=== PATIENT | male | born 1965 | race Caucasian/White ===

== ENCOUNTER 2018-03-06 21:27 | Inpatient (IN) | payer OTHER ==
[2018-03-06] MEDS ORDERED: SODIUM CHLORIDE 0.9% 1,000 ML IV SCH (23:45)
[2018-03-06] MEDS ORDERED: VANCOMYCIN IV PER PHARMACY 1 EACH MISC MISCELLANE PRN (23:59)
[2018-03-07] MEDS ORDERED: VANCOMYCIN 1,250 MG in SODIUM CHLORIDE 0.9% 250 ML IVPB STA (00:03)
--- NOTE | 2018-03-07 00:04 | ED ---
General Adult HPI - General Chief complaint: Extremity Problem,Nontraumatic Stated complaint: Infected knee Time Seen by Provider: 03/06/18 22:22 Source: patient, RN notes reviewed Mode of arrival: ambulatory Limitations: no limitations - History of Present Illness Initial comments: Chief complaint and history of present illness this is a 52-year-old male with an infection to his right knee. The patient has a history of MRSA. More recently he was placed on Bactrim because of infection to his right knee. He reports getting worse over the past 2 days. - Related Data Home Medications Medication Instructions Recorded Confirmed Ibuprofen [Motrin] 800 mg PO DAILY 03/06/18 03/06/18 Sulfamethox-Tmp 800-160Mg [Bactrim 1 tab PO Q12HR 03/06/18 03/06/18 DS 800-160 mg] Allergies Allergy/AdvReac Type Severity Reaction Status Date / Time meperidine [From Demerol] Allergy Itching Verified 03/06/18 21:53 Review of Systems ROS Statement: Those systems with pertinent positive or pertinent negative responses have been documented in the HPI. Review of systems no other complaints other than pain. The patient does report that he is homeless and he uses cocaine and methamphetamine to control pain. The patient does have a past history of MRSA to his left leg 2 months ago. Spent the [facility] in [facility]. More recently he said he knelt down irritated his right knee. Subsequently developed an infection. Currently being treated as it was MRSA. He's been on Bactrim for 2 days and the infection seems to be getting worse. Past medical problems significant for chronic abuse of cocaine and methamphetamine. The patient's surgeries include elbow and both knees. Family history no cancers. The patient has ALLERGIES to Demerol. Denies smoking denies drinking. ROS Other: All systems not noted in ROS Statement are negative. Past Medical History Past Medical History: No Reported History History of Any Multi-Drug Resistant Organisms: MRSA Date of last positivie culture/infection: 2017 MDRO Source:: left leg Past Surgical History: Back Surgery, Orthopedic Surgery Past Psychological History: Bipolar, Depression Smoking Status: Former smoker Past Alcohol Use History: None Reported Past Drug Use History: Cocaine, Methamphetamine General Exam - General Exam Comments Initial Comments: General: The patient is awake and alert, vital painful swollen infected right knee. Vital signs temperature 98.1 pulse 107 respiratory rate 18 pulse ox 90% room air blood pressure 109/71 Eye: Pupils are equal, round and reactive to light, extra-ocular movements are intact ; there is normal conjunctiva bilaterally. No signs of icterus. Ears, nose, mouth and throat: There are moist mucous membranes Neck: The neck is supple, there is no tenderness . Cardiovascular: There is a regular rate and rhythm. No murmur, rub or gallop is appreciated. Respiratory: Lungs are clear to auscultation, respirations are non-labored, breath sounds are equal. No wheezes, stridor, rales, or rhonchi. Gastrointestinal: Soft, non-distended, non-tender abdomen without masses or organomegaly noted. There is no rebound or guarding present. No CVA tenderness. Bowel sounds are unremarkable. Back: Denies back pain today. Musculoskeletal: Infected skin over right knee. Cellulitis spreading down to the lateral aspect of the right leg. Vascular status of the foot intact. Neurological: No focal or lateralizing findings Skin: Skin is warm and dry and no rashes or lesions are noted. Psychiatric: Cooperative, Limitations: no limitations Course Vital Signs 03/06/18 03/06/18 21:48 23:41 Temperature 98.1 F 98.3 F Pulse Rate 107 H 61 Respiratory 18 18 Rate Blood Pressure 109/71 125/76 O2 Sat by Pulse 98 98 Oximetry Medical Decision Making - Medical Decision Making Medical decision making; this is a 52-year-old male reports he is homeless. He' s been on Bactrim for a worsening infection to his right knee area for 2 days. Cellulitis and developing now down towards his lateral right calf. He does a past history of MRSA. The patient will be admitted to the hospitalist. Been started on vancomycin here in the emergency room. Cultures been taken. Disposition Clinical Impression: Cellulitis of right lower extremity without foot Disposition: ADMITTED IP TO THIS HOSP Condition: Serious Is patient prescribed a controlled substance at d/c from ED?: No Referrals: None,Stated [Primary Care Provider] - 1-2 days
[2018-03-07 00:22] LABS: Basophils % (A) 0 %; Eosinophils # (A) 0.1 k/uL (0-0.7); Eosinophils % (A) 1 %; HCT 39.6 % (39.0-53.0); HGB 13.1 gm/dL (13.0-17.5); Lymphocytes % (A) 12 %; MCH 29.4 pg (25.0-35.0); MCHC 33.1 g/dL (31.0-37.0); MCV 88.9 fL (80.0-100.0); Mean Platelet Volume 6.6; Monocytes # (A) 0.5 k/uL (0-1.0); Monocytes % (A) 7 %; Neutrophils # (A) 6.2 k/uL (1.3-7.7); Neutrophils % (A) 78 %; Platelet Count 227 k/uL (150-450); RBC 4.46 m/uL (4.30-5.90); RDW 12.5 % (11.5-15.5)
[2018-03-07 00:31] LABS: Albumin 3.7 g/dL (3.5-5.0); Anion Gap 10 mmol/L; Calcium 9.3 mg/dL (8.4-10.2); Carbon Dioxide 24 mmol/L (22-30); Chloride 104 mmol/L (98-107); Glucose 89 mg/dL (74-99); Sodium 138 mmol/L (137-145); Total Bilirubin 0.6 mg/dL (0.2-1.3); Total Protein 6.5 g/dL (6.3-8.2)
[2018-03-07 00:47] LABS: AST 42 U/L (17-59); Blood Urea Nitrogen 21 mg/dL (9-20); Potassium 4.5 mmol/L (3.5-5.1)
[2018-03-07 00:48] LABS: ALT 34 U/L (21-72); Alkaline Phosphatase 42 U/L (38-126)
[2018-03-07] MEDS ORDERED: NALOXONE 0.4 MG/ML 1 ML VIAL IV PRN (01:08)
[2018-03-07] MEDS: IBUPROFEN 400 MG TAB PO PRN ×2 (02:10→08:19)
[2018-03-07 02:39] VITALS: BMI 23.3
[2018-03-07] MEDS: SODIUM CHLORIDE 0.9% 1,000 ML IV SCH ×2 (03:05→14:52)
[2018-03-07] MEDS: VANCOMYCIN 1,250 MG in SODIUM CHLORIDE 0.9% 250 ML IVPB SCH ×2 (08:04→20:02)
[2018-03-07] MEDS: HYDROcodone/APAP 7.5-325MG 1 EACH TAB PO PRN ×2 (10:41→18:17)
[2018-03-07] MEDS ORDERED: LORazepam 1 MG TAB PO PRN (11:13)
--- NOTE | 2018-03-07 16:17 | P.CNOR ---
History of Present Illness - [facility] Consult date: 03/07/18 Consult reason: other History of present illness: Patient is a 52-year-old male who presented to [facility] on late night of 03/06/2018 with regards to infection to his right knee revision. Patient states that he noticed the redness and swelling beginning earlier in the week, and is progressively gotten worse over the last few days. According to the emergency room note, patient has been on oral Bactrim. Patient noticed some of the redness around the knee started trending down the lateral side of the right leg, this prompted him to come to the emergency room. Patient does have a history of MRSA, he states that was on his left leg last year. It was a wound that is over the anterior lower leg. There is no surgical intervention was done. Patient cannot remember kneeling down on anything involving the right knee that may have caused this. Patient has had a previous right knee arthroscopy on his right knee, this was done many years ago. Patient states that he is homeless at this time, and he does use illicit drugs. He denies any recent trauma involving the right lower extremity. Review of Systems Constitutional: Reports as per [facility] Past Medical History Past Medical History: No Reported History History of Any Multi-Drug Resistant Organisms: MRSA Year Discovered:: 2018 MDRO Source:: left leg Past Surgical History: Back Surgery, Orthopedic Surgery Additional Past Surgical History / Comment(s): bilateral elbow, 2 R knee surgeries Past Psychological History: Bipolar, Depression Smoking Status: Never smoker Past Alcohol Use History: None Reported Past Drug Use History: Cocaine, Methamphetamine - Past Family History Father Additional Family Medical History / Comment(s): from staph infection Mother Additional Family Medical History / Comment(s): Alzheimers Medications and Allergies Home Medications Medication Instructions Recorded Confirmed Type No Known Home Medications 03/07/18 03/07/18 History Allergies Allergy/AdvReac Type Severity Reaction Status Date / Time meperidine [From Demerol] Allergy Itching Verified 03/07/18 12:20 Physical Examination Right lower extremity: Obvious area of erythema and skin breakdown noted over the lateral aspect of the patella and lateral knee. There are 2 small areas more on the anterior aspect of the wound or purulent drainage is noted. Mild fluctuation of the prepatellar bursa is appreciated. No effusion is present on the knee Patient can fully extend the knee, he can flex past 90 with minimal difficulty. There is some erythema that traces down the lateral aspect of the right lower leg, this is outlined in marker 6, no tenderness with palpation Plantar flexion, dorsiflexion, EHL, FHL are intact His dorsal pedis pulses 2+ Results - Labs Labs: Abnormal Lab Results - Last 24 Hours (Table) 03/06/18 03/06/18 03/06/18 Range/Units 22:52 22:52 22:52 ESR 18 H (0-15) mm/hr BUN 21 H (9-20) mg/dL C-Reactive Protein 49.4 H (<10.0) mg/L Microbiology - Last 24 Hours (Table) 03/06/18 22:57 Wound Culture - Preliminary Knee - Right H & H 03/06/18 Range/Units 22:52 Hgb 13.1 (13.0-17.5) gm/dL Hct 39.6 (39.0-53.0) % Result Diagrams: 03/06/18 22:52 03/06/18 22:52 Assessment and Plan Plan: Assessment: Right knee/leg cellulitis Right knee abscess History of MRSA Plan: I was able to discuss the case, including physical exam findings with Dr. Quezada. We are awaiting Gram stain results from the wound was taking in the emergency room. He does have an elevated CRP and sed rate at this time. He remains on IV antibiotics at this time Await infectious disease recommendations Patient will likely need surgical intervention, more specifically an incision and drainage procedure. Patient did have breakfast and lunch today, so surgery will be held. GI and DVT prophylaxis per medical recommendations Internal medicine's recommendations Patient will be Nothing by mouth the night before surgery, date of surgery will be determined shortly Further recommendations to follow Time with Patient: Less than 30
[2018-03-07 19:08] LABS: Appearance,Urine Clear (Clear); Bilirubin,Urine Negative (Negative); Blood,Urine Negative (Negative); Color,Urine Colorless; Glucose,Urine (UA) Negative (Negative); Ketones,Urine Negative (Negative); Leukocyte Esterase,Urine Negative (Negative); Nitrite,Urine Negative (Negative); PH, Urine 6.5 (5.0-8.0); Protein,Urine Negative (Negative); Specific Gravity,Urine 1.006 (1.001-1.035); Urobilinogen,Urine <2.0 mg/dL (<2.0)
[2018-03-07] MEDS: KETOROLAC 30 MG/ML 1 ML VIAL IVP PRN (19:19)
[2018-03-07 19:29] LABS: Amphetamine Screen,Urine Detected (NotDetected); Barbiturate Screen,Urine Not Detected (NotDetected); Benzodiazepines Screen,Urine Not Detected (NotDetected); Cocaine Screen,Urine Detected (NotDetected); Methadone Screen, Urine Not Detected (NotDetected); Opiate Screen,Urine Detected (NotDetected); Oxycodone Screen, Urine Not Detected (NotDetected); Phencyclidine Screen,Urine Not Detected (NotDetected); Tricyclic Antidepressant,Urine Not Detected (NotDetected); Urn Cannabinoid Scrn Not Detected (NotDetected)
--- NOTE | 2018-03-07 19:30 | HP ---
HISTORY AND PHYSICAL CHIEF COMPLAINT: Pain and swelling of the right leg. HISTORY OF PRESENT ILLNESS: This 52-year-old gentleman with a past history of DJD, history of bipolar depression being followed by no primary physician in the outpatient setting, apparently was recently treated in [facility]. Records are not available. Currently the patient is complaining of the pain and swelling of the right knee. The patient also had a history of substance abuse also. The patient admitted to the hospital for further evaluation and treatment. Patient also has history of Methicillin-resistant Staphylococcus aureus. The patient is not responding to Bactrim outpatient. There is no history of fever, rigors or chills at this time. PAST MEDICAL HISTORY: History of MRSA, history of back surgery, DJD, bipolar depression. MEDICATIONS: Prior to admission included none. ALLERGIES: DEMEROL. FAMILY HISTORY: History of staph infection in the family. SOCIAL HISTORY: History of polysubstance abuse, history of cocaine. No history of smoking. REVIEW OF SYSTEMS: ENT: No diminished vision. No diminished hearing. No angina or palpitations. RESPIRATORY SYSTEM: As mentioned. GI: No nausea or vomiting. : No dysuria. NERVOUS SYSTEM: No numbness or weakness. ALLERGY/IMMUNOLOGY: As mentioned earlier. MUSCULOSKELETAL: As mentioned earlier. HEMATOLOGY/ONCOLOGY: No history of anemia. ENDOCRINE: No history of diabetes or hypothyroidism. CONSTITUTIONAL: As mentioned earlier. Dermatology: Negative. Rheumatology: Negative. Psychiatry: As mentioned earlier. PHYSICAL EXAMINATION: GENERAL: The patient is alert and oriented times three. VITAL SIGNS: Pulse 75, pressure 112/67, respiration 18, temperature 97.4, pulse ox 97 percent on room air. HEENT: Conjunctivae normal. Oral mucosa moist. NECK is no jugular venous distention. No carotid bruit. No lymph node enlargement. Cardiovascular system: S1, S2 muffled. RESPIRATORY: Breath sounds diminished in the bases. Scattered rhonchi. No crackles. ABDOMEN: Soft, nontender. No mass palpable. Legs no edema. No swelling. Otherwise significant erythema and cellulitis of the right knee and cellulitis of the legs also present. Nervous system: No focal deficits. LABS: CBC within normal limits. ASSESSMENT: 1. Right leg and knee cellulitis with failure of outpatient treatment, possibly MRSA. 2. History of MRSA. 3. History of previous cellulitis. 4. History of back surgery. Degenerative joint disease. 5. Bipolar depression. 6. History of cocaine, methamphetamine. RECOMMENDATIONS AND DISCUSSION: In this 52-year-old gentleman who presented with multiple complex medical issues, we will monitor the patient closely. Continue the current medications, management and symptomatic treatment. I would recommend switch over to vancomycin. Symptomatic treatment. Otherwise I would recommend repeat labs. Cultures. DVT prophylaxis. Prognosis guarded because of multiple complex medical issues and further recommendations to follow. MMVENANCIOL / IJN: [id number] /
[2018-03-07] MEDS: HEPARIN SODIUM,PORCINE 5,000 UNIT/ML 1 ML VIAL SQ SCH (20:03)
[2018-03-07] MEDS ORDERED: TEMAZEPAM 15 MG CAP PO PRN (21:00)
[2018-03-08] MEDS: SODIUM CHLORIDE 0.9% 1,000 ML IV SCH ×2 (04:03→16:52)
--- NOTE | 2018-03-08 06:40 | CONS ---
CONSULTATION DATE OF SERVICE: 03/07/2018 REASON FOR CONSULTATION: Right knee wound and cellulitis. HISTORY OF PRESENT ILLNESS: The patient is a 52-year-old male who apparently did have a fall which led to laceration to the right knee area and open wound. Subsequently the patient developed significant pain and swelling to the knee area. Pain described as throbbing almost 10 out of 10 when severe and worse with walking. The patient also some superficial wound to the area. He has been treated with oral Bactrim without any improvement with worsening pain. He presented to the [facility]. On admission, the patient has been afebrile. His white count has been normal. Sed rate was at 18. UA was negative. Urine drug screen was positive for multiple medications. The patient did have right knee cultures obtained which are currently pending. The patient has been started on vancomycin. Infectious Disease was consulted for further recommendation regarding antibiotic therapy. The patient has been evaluated by Orthopedics with possible surgery for patient tomorrow. REVIEW OF SYSTEMS: CONSTITUTIONAL: Positive for weakness. Denies any high-grade fever. EYES: No complaint. ENT: No complaint. RESPIRATORY: No complaint. CARDIOVASCULAR: No complaint. GENITOURINARY: No complaint. GASTROINTESTINAL: No complaint. MUSCULOSKELETAL: As per HPI. INTEGUMENTARY: As per HPI. PSYCHOLOGICAL: No complaint. ENDOCRINE: No complaint. NEUROLOGIC: No complaint. PAST MEDICAL HISTORY: Previous history of MRSA left leg infection, bipolar depression. PAST SURGICAL HISTORY: Back surgery. SOCIAL HISTORY: Positive history of smoking. No drinking, but admitted to cocaine and methamphetamine use. ALLERGIES: Allergies to MEPERIDINE. MEDICATIONS: Medications include the patient is currently on [place], heparin, Motrin, Toradol, Ativan, vancomycin pharmacy to dose, Narcan, Restoril and vancomycin. PHYSICAL EXAMINATION: On examination, blood pressure 109/59 with a pulse of 70 temperature 97.6. He is 96% on room air. General description is a middle-aged male lying in bed in no distress. No tachypnea or accessory muscle of respiration use. HEENT examination shows no pallor. No scleral icterus. Oral mucous membrane is dry. No pharyngeal erythema or thrush. NECK: Trachea central. No thyromegaly. LUNGS: Unlabored breathing, clear to auscultation anteriorly. No wheeze or crackle. HEART: S1, S2. Regular rate and rhythm. ABDOMEN: Soft, no tenderness. No guarding or rigidity. EXTREMITIES: No edema of the feet. Examination the right knee did have superficial laceration with surrounding redness, slight swelling. No foul smelling drainage. NEUROLOGICALLY: The patient is awake, alert, oriented x3. Mood and affect is normal. LABS: Hemoglobin 13.1, white count 8.0. Sed rate is 18. BUN of 21, creatinine 0.90. Electrolytes have been normal. Liver enzymes are normal. Urine is negative. Urine drug screen was positive for opiates, amphetamines, cocaine. Knee culture is currently pending. Blood cultures currently pending. DIAGNOSTIC IMPRESSION AND PLAN: Patient admitted to the hospital with right knee cellulitis and concern for possible prepatellar bursitis and likely from a gram-positive skin tamie failing outpatient oral Bactrim therapy with concern for possible methicillin-resistant Staphylococcus aureus infection. PLAN: 1. Vancomycin pharmacy to dose target of 15. 2. Patient will benefit from I and D of this area to determine the extent of the disease and to see if the joint is involved or not. 3. We will follow on his clinical condition as well as cultures to further adjust medication if needed. Thank you for this consultation. Will follow this patient along with you. MMODL / IJN: [id number] /
[2018-03-08 07:37] LABS: Basophils % (A) 0 %; Eosinophils # (A) 0.2 k/uL (0-0.7); Eosinophils % (A) 5 %; HCT 35.8 % (39.0-53.0); HGB 12.1 gm/dL (13.0-17.5); Lymphocytes % (A) 26 %; MCH 30.3 pg (25.0-35.0); MCV 89.3 fL (80.0-100.0); Mean Platelet Volume 6.4; Monocytes # (A) 0.2 k/uL (0-1.0); Monocytes % (A) 6 %; Neutrophils # (A) 2.4 k/uL (1.3-7.7); Neutrophils % (A) 60 %; Platelet Count 185 k/uL (150-450); RDW 12.4 % (11.5-15.5); WBC 3.9 k/uL (3.8-10.6)
[2018-03-08 07:51] LABS: Anion Gap 6 mmol/L; Blood Urea Nitrogen 11 mg/dL (9-20); Calcium 8.8 mg/dL (8.4-10.2); Carbon Dioxide 25 mmol/L (22-30); Chloride 105 mmol/L (98-107); Glucose 82 mg/dL (74-99); Potassium 4.3 mmol/L (3.5-5.1); Sodium 136 mmol/L (137-145)
[2018-03-08] MEDS ORDERED: VANCOMYCIN TROUGH DUE 1 EACH MISC MISCELLANE ONE (08:00)
[2018-03-08] MEDS: HEPARIN SODIUM,PORCINE 5,000 UNIT/ML 1 ML VIAL SQ SCH ×2 (08:05→20:34)
[2018-03-08] MEDS: VANCOMYCIN 1,250 MG in SODIUM CHLORIDE 0.9% 250 ML IVPB SCH ×3 (08:06→23:54)
[2018-03-08] MEDS: KETOROLAC 30 MG/ML 1 ML VIAL IVP PRN ×2 (12:02→19:46)
[2018-03-08] MEDS ORDERED: LIDOCAINE 1% 20 ML VIAL (10MG/ML) FOR IV START INTRADERMA PRN (16:34)
[2018-03-08] MEDS ORDERED: fentaNYL (PF) 50 MCG/ML 2 ML AMP IV PRN (16:34)
[2018-03-08] MEDS ORDERED: DEXAMETHASONE SOD PHOSPHATE 10 MG/ML 1 ML VIAL IV ONE (16:34)
[2018-03-08] MEDS ORDERED: ONDANSETRON 4 MG/2 ML VIAL IVP ONE (16:34)
[2018-03-08] MEDS ORDERED: MIDAZOLAM 2 MG/2 ML VIAL IV PRN (16:34)
[2018-03-08] MEDS ORDERED: LACTATED RINGERS 1,000 ML IV SCH (16:45)
[2018-03-08] MEDS ORDERED: LACTATED RINGERS 1,000 ML IV ONE (17:07)
[2018-03-08] MEDS ORDERED: LIDOCAINE 1% INJ 10MG/ML (20 ML MDV) ONE (17:34)
[2018-03-08] MEDS ORDERED: MIDAZOLAM 2 MG/2 ML VIAL ONE (17:34)
[2018-03-08] MEDS ORDERED: PROPOFOL 10 MG/ML 20 ML VIAL IV ONE (17:34)
[2018-03-08] MEDS ORDERED: fentaNYL (PF) 50 MCG/ML 2 ML AMP ONE (17:34)
--- NOTE | 2018-03-08 18:08 | P.OP ---
Date of Procedure: 03/08/18 Preoperative Diagnosis: Right lateral knee abscess/cellulitis Postoperative Diagnosis: Same Procedure(s) Performed: Incision and drainage with irrigation and debridement right lateral knee abscess Anesthesia: REBEKA Surgeon: Sy Quezada Estimated Blood Loss (ml): 4 Pathology: other (Deep cultures) Condition: stable Disposition: PACU Indications for Procedure: The patient's a 52-year-old male who presents with progressive right knee pain and swelling, drainage, and erythema. Upon evaluation he was noted of evidence of a lateral abscess. This was not felt to involve the joint. A discussion of the risks and benefits of operative intervention was made with patient. Specific risks of the procedure to include persistence of infection and need for subsequent procedures was discussed. Informed consent was obtained. Operative Findings: As below Description of Procedure: The patient was brought to the operating room, and after induction of general anesthesia the right lower extremity was prepped and draped in normal fashion. The tourniquet is inflated to 270 mmHg. A 4 cm incision was then made on the lateral aspect of the right knee centered over the palpable abscess. The skin and subcutaneous tissues were divided sharply. Moderate purulent material was then expressed. Deep cultures were obtained. This was taken down to level the fascia. The necrotic tissue was sharply debrided with a scalpel to include skin and subcutaneous tissues. Skin edges were also debrided sharply with a scalpel. The wound was then copiously irrigated with pulsatile lavage. The joint did not appear to be involved. A Mark drain was placed in the deep layer. The skin was reprepped with simple 3-0 nylon suture. A sterile dressing was applied. The tourniquet was deflated less than 20 minutes total tourniquet time. The patient was awoken from general anesthesia and transferred to recovery room in good condition. Blood loss was estimated at 4 mL. No complications were incurred. Sponge and needle counts were correct at the end of the case.
[2018-03-08] MEDS: traMADol 50 MG TAB PO PRN (20:33)
[2018-03-09] MEDS: SODIUM CHLORIDE 0.9% 1,000 ML IV SCH ×2 (00:03→13:35)
[2018-03-09] MEDS: VANCOMYCIN 1,250 MG in SODIUM CHLORIDE 0.9% 250 ML IVPB SCH ×2 (07:38→15:31)
[2018-03-09] MEDS: HEPARIN SODIUM,PORCINE 5,000 UNIT/ML 1 ML VIAL SQ SCH ×2 (07:39→20:57)
[2018-03-09] MEDS: traMADol 50 MG TAB PO PRN (07:39)
[2018-03-09 07:56] LABS: Basophils % (A) 0 %; Eosinophils % (A) 1 %; HCT 40.8 % (39.0-53.0); HGB 13.2 gm/dL (13.0-17.5); Lymphocytes # (A) 0.8 k/uL (1.0-4.8); Lymphocytes % (A) 11 %; MCH 29.5 pg (25.0-35.0); MCHC 32.3 g/dL (31.0-37.0); MCV 91.4 fL (80.0-100.0); Mean Platelet Volume 6.1; Monocytes # (A) 0.3 k/uL (0-1.0); Monocytes % (A) 3 %; Neutrophils # (A) 6.6 k/uL (1.3-7.7); Neutrophils % (A) 84 %; Platelet Count 224 k/uL (150-450); RBC 4.46 m/uL (4.30-5.90); RDW 12.4 % (11.5-15.5); WBC 7.8 k/uL (3.8-10.6)
--- NOTE | 2018-03-09 07:56 | PN ---
PROGRESS NOTE DATE OF SERVICE: 03/08/2018. REASON FOR FOLLOWUP: Right knee abscess and cellulitis. INTERVAL HISTORY: The patient was taken to the OR and the patient is status post I and D with irrigation and debridement of the right lateral knee abscess with extension of the abscess down to the fascia. The knee joint was not involved. The patient had tolerated the procedure. The patient denies having any chest pain, shortness of breath or cough. No abdominal pain or any diarrhea. PHYSICAL EXAMINATION: On examination, blood pressure is 93/53 with a pulse of 65, temperature 97. He is 96% on room air. General description is a middle-aged male lying in bed in no distress. RESPIRATORY SYSTEM: Unlabored breathing, clear to auscultation anteriorly. HEART: S1, S2. Regular rate and rhythm. ABDOMEN: Soft, no tenderness. LABS: Hemoglobin is 12.1, white count 3.9 with a BUN of 11, creatinine 0.791. Knee culture presumptive MRSA. Blood culture so far negative. DIAGNOSTIC IMPRESSION AND PLAN: Patient with right lateral knee abscess status post drainage without involvement of the joints with culture with presumptive methicillin-resistant Staphylococcus aureus. The patient is on vancomycin pharmacy to dose target of 15 that will be continued while watching his kidney function closely. Continue supportive care. MMODL / IJN: [id number] /
--- NOTE | 2018-03-09 08:08 | PN ---
PROGRESS NOTE DATE OF SERVICE: 03/08/2018 This 52-year-old gentleman admitted with pain and swelling of the right knee has possible right leg cellulitis. Dr. Quezada performed incision and drainage and irrigation and debridement of the right knee abscess. The patient is being closely monitored. No chest pain. No palpitations. No fever. Patient on IV antibiotics. PHYSICAL EXAMINATION: On exam, alert and oriented x3. Pulse is 64, blood pressure 101/58, respiration 16, temperature 97 degrees, pulse ox 97% on room air. HEENT: Conjunctivae are normal. NECK: No jugular venous distention. CARDIOVASCULAR: S1 and S2 muffled. RESPIRATORY: Breath sounds diminished at the bases. No rhonchi, no crackles. ABDOMEN: Soft. LEGS: Status post right knee abscess drainage. NERVOUS SYSTEM: No focal deficits. LABS: WBC 3.9, hemoglobin 12.1. ASSESSMENT: 1. Right knee abscess with cellulitis status post incision, drainage and irrigation. 2. History of Methicillin-resistant Staphylococcus aureus. 3. History of previous cellulitis. 4. History of back surgery. 5. Degenerative joint disease. 6. History of bipolar, depression. 7. History of cocaine, methamphetamine. RECOMMENDATIONS AND DISCUSSION: Recommend to continue current medication, continue symptomatic treatment. Continue with broad-spectrum IV antibiotics. Follow the cultures. Closely follow with Infectious Disease and as well as Orthopedic Surgery. Further recommendations to follow. MMODL / IJN: [id number] /
[2018-03-09 08:12] LABS: Anion Gap 8 mmol/L; Blood Urea Nitrogen 15 mg/dL (9-20); Calcium 8.9 mg/dL (8.4-10.2); Carbon Dioxide 23 mmol/L (22-30); Chloride 106 mmol/L (98-107); Glucose 89 mg/dL (74-99); Potassium 4.3 mmol/L (3.5-5.1); Sodium 137 mmol/L (137-145)
--- NOTE | 2018-03-09 10:30 | P.PN ---
Subjective Progress Note Date: 03/09/18 Principal diagnosis: Status post I&D right leg abscess Patient seen today resting in his hospital bed, he appears comfortable. Notes minimal discomfort in the right knee/leg. He notes improvement since surgery yesterday. Denies any fevers or chills. Objective - Vital Signs Vital signs: Vital Signs Temp 97.8 F 03/09/18 07:52 Pulse 65 03/09/18 07:52 Resp 16 03/09/18 07:52 BP 110/56 03/09/18 07:52 Pulse Ox 97 03/09/18 07:52 Intake & Output 03/08/18 03/09/18 03/09/18 18:59 06:59 18:59 Intake Total 450 1800 Output Total 4 Balance 446 1800 Intake: IV 450 Intake, IV Titration 1210 Amount Sodium Chloride 0.9% 1, 960 000 ml @ 80 mls/hr IV . [id number] [facility] Rx#:[id number] Vancomycin 1,250 mg In 250 Sodium Chloride 0.9% 250 ml @ 125 mls/hr IVPB Q8HR [facility] Rx#:[id number] Oral 590 Output: Estimated Blood Loss 4 Other: Voiding Method Toilet Toilet # Voids 3 2 - Exam Right lower extremity: Postoperative bandages in good position and condition, along with Jim bandage Calf is soft, no tenderness with palpation Distal neurovascular exam is intact - Labs CBC & Chem 7: 03/09/18 07:34 03/09/18 07:34 Labs: Abnormal Lab Results - Last 24 Hours (Table) 03/09/18 Range/Units 07:34 Lymphocytes # 0.8 L (1.0-4.8) k/uL Microbiology - Last 24 Hours (Table) 03/06/18 22:57 Gram Stain - Final Knee - Right Wound Culture - Final Methicillin resist S. aureus 03/08/18 17:45 Gram Stain - Preliminary Knee - Right Wound Culture - Preliminary 03/08/18 17:45 Gram Stain - Preliminary Knee - Right Wound Culture - Preliminary 03/06/18 22:52 Blood Culture - Preliminary Blood No Growth after 48 hours 03/08/18 17:45 Anaerobic Culture - Preliminary Knee - Right 03/08/18 17:45 Anaerobic Culture - Preliminary Knee - Right Assessment and Plan Plan: Assessment: Postoperative day #1 status post I&D right leg abscess Plan: Overweight culture and sensitivities from surgery yesterday. Initial Gram stain and cultures from wound reveal MRSA. Infectious disease recommendations with regards to outpatient antibiotics GI and DVT prophylaxis per medical recommendations Pain control, continue use of oral medication We'll leave initial postop bandage on 1 additional day, we will remove [place] drain and change bandage tomorrow morning Further recommendations to follow Time with Patient: Less than 30
[2018-03-09] MEDS: KETOROLAC 30 MG/ML 1 ML VIAL IVP PRN ×2 (13:33→20:57)
--- NOTE | 2018-03-09 18:20 | PN ---
PROGRESS NOTE DATE OF SERVICE: 03/09/2018 This 52-year-old gentleman admitted with right knee abscess, incision and drainage. MRSA was grown. The patient had a history of MRSA. MRSA grown from the culture. No chest pain. No palpitations. No fever. EXAM: Alert and oriented x3. Pulse 65, blood pressure 110/65, respirations 16, temperature 97.8, pulse ox 97% on room air. HEENT: Conjunctivae normal. NECK: No jugular venous distention. CARDIOVASCULAR: S1, S2 muffled. RESPIRATORY: Breath sounds diminished in the bases. A few scattered rhonchi. No crackles. ABDOMEN: Soft, nontender. LEGS: Right knee cellulitis. NERVOUS SYSTEM: Nonfocal. LABS: CBC, BMP within normal limits. ASSESSMENT: 1. Right knee abscess cellulitis, status post incision and drainage, irrigation with methicillin-resistant Staphylococcus aureus. 2. History of methicillin-resistant Staphylococcus aureus previously. 3. History of previous cellulitis. 4. History of back surgery. 5. History of degenerative joint disease. 6. History of bipolar depression. 7. History of cocaine, methamphetamine. RECOMMENDATIONS AND DISCUSSION: Consequent to continue current medical management and symptomatic treatment with IV antibiotics. Closely follow with Orthopedic Surgery. Guarded prognosis. Further recommendations to follow. MMODL / IJN: [id number] /
--- NOTE | 2018-03-10 00:02 | PN ---
PROGRESS NOTE DATE OF SERVICE: 03/09/2018. REASON FOR FOLLOWUP: Right lateral knee MRSA abscess. INTERVAL HISTORY: The patient is currently afebrile. He has been breathing comfortably. Pain to the right lateral knee is currently controlled with pain medication. Denies having any chest pain. No shortness of breath or cough. No abdominal pain or any diarrhea. EXAMINATION: Blood pressure is 110/56 with a pulse of 65, temperature 97.8. He is 97% on room air. General description is middle-aged male lying in bed in no distress. RESPIRATORY SYSTEM: Unlabored breathing. Clear to auscultation anteriorly. HEART: S1, S2. Regular rate and rhythm. ABDOMEN: Soft. No tenderness. Right lateral knee is currently dressed with no obvious drainage on the dressing. LABS: Hemoglobin 13.2, white count 7.8 with a BUN of 15, creatinine 0.78. DIAGNOSTIC IMPRESSION AND PLAN: Patient with methicillin-resistant Staphylococcus aureus right knee abscess, status post drainage. Would recommend getting a line for IV vancomycin, Pharmacy to dose,at least 2 weeks with close outpatient followup. This will be explained to the caseworker protective services. MANUELL / IJN: [id number] /
[2018-03-10] MEDS: VANCOMYCIN 1,250 MG in SODIUM CHLORIDE 0.9% 250 ML IVPB SCH ×2 (00:15→09:56)
[2018-03-10] MEDS: SODIUM CHLORIDE 0.9% 1,000 ML IV SCH ×2 (04:39→09:56)
[2018-03-10 06:56] LABS: Basophils % (A) 0 %; Eosinophils # (A) 0.1 k/uL (0-0.7); Eosinophils % (A) 3 %; HCT 37.8 % (39.0-53.0); HGB 12.3 gm/dL (13.0-17.5); Lymphocytes # (A) 1.7 k/uL (1.0-4.8); Lymphocytes % (A) 42 %; MCH 29.4 pg (25.0-35.0); MCHC 32.5 g/dL (31.0-37.0); MCV 90.2 fL (80.0-100.0); Mean Platelet Volume 6.5; Monocytes # (A) 0.2 k/uL (0-1.0); Monocytes % (A) 6 %; Neutrophils % (A) 47 %; Platelet Count 212 k/uL (150-450); RBC 4.19 m/uL (4.30-5.90); RDW 12.4 % (11.5-15.5); WBC 4.2 k/uL (3.8-10.6)
[2018-03-10] MEDS ORDERED: VANCOMYCIN TROUGH DUE 1 EACH MISC MISCELLANE ONE (07:00)
[2018-03-10 07:13] LABS: Potassium 4.2 mmol/L (3.5-5.1)
[2018-03-10 07:14] LABS: Anion Gap 4 mmol/L; Blood Urea Nitrogen 14 mg/dL (9-20); Calcium 8.7 mg/dL (8.4-10.2); Carbon Dioxide 27 mmol/L (22-30); Chloride 108 mmol/L (98-107); Glucose 84 mg/dL (74-99); Sodium 139 mmol/L (137-145)
[2018-03-10] MEDS: HEPARIN SODIUM,PORCINE 5,000 UNIT/ML 1 ML VIAL SQ SCH ×2 (09:57→20:22)
[2018-03-10] MEDS: traMADol 50 MG TAB PO PRN ×2 (10:03→17:07)
--- NOTE | 2018-03-10 10:29 | P.PN ---
Subjective Progress Note Date: 03/10/18 Principal diagnosis: Status post I&D right leg abscess Patient seen today resting in his hospital bed, he appears comfortable. Notes minimal discomfort in the right knee/leg Denies any fevers or chills. Objective - Vital Signs Vital signs: Vital Signs Temp 98.1 F 03/10/18 06:05 Pulse 51 L 03/10/18 06:05 Resp 18 03/10/18 06:05 BP 102/60 03/10/18 06:05 Pulse Ox 98 03/10/18 06:05 Intake & Output 03/09/18 03/10/18 03/10/18 18:59 06:59 18:59 Intake Total 960 1005 480 Balance 960 1005 480 Intake: Intake, IV Titration 560 765 Amount Sodium Chloride 0.9% 1, 560 640 000 ml @ 80 mls/hr IV . [id number] [facility] Rx#:[id number] Vancomycin 1,250 mg In 125 Sodium Chloride 0.9% 250 ml @ 125 mls/hr IVPB Q8HR [facility] Rx#:[id number] Oral 400 240 480 Other: Voiding Method Toilet Toilet Toilet # Voids 2 - Exam Right lower extremity: Initial postoperative bandages removed, [place] drain was removed. No active drainage at this time. Wound appears significantly improved since day of surgery. Calf is soft, no tenderness with palpation Distal neurovascular exam is intact - Labs CBC & Chem 7: 03/10/18 06:39 03/10/18 06:39 Labs: Abnormal Lab Results - Last 24 Hours (Table) 03/10/18 03/10/18 Range/Units 06:39 06:39 RBC 4.19 L (4.30-5.90) m/uL Hgb 12.3 L (13.0-17.5) gm/dL Hct 37.8 L (39.0-53.0) % Chloride 108 H (98-107) mmol/L Microbiology - Last 24 Hours (Table) 03/06/18 22:57 Gram Stain - Final Knee - Right Wound Culture - Final Methicillin resist S. aureus 03/06/18 22:52 Blood Culture - Preliminary Blood No Growth after 72 hours 03/08/18 17:45 Gram Stain - Preliminary Knee - Right Wound Culture - Preliminary Presumptive MRSA 03/08/18 17:45 Gram Stain - Preliminary Knee - Right Wound Culture - Preliminary Presumptive MRSA Assessment and Plan Plan: Assessment: Postoperative day #2 status post I&D right leg abscess Plan: Culture showing presumptive MRSA infection. Patient will likely receive a PICC line for continuation of IV antibiotics. GI and DVT prophylaxis per medical recommendations Pain control, continue use of oral medication Daily dressing changes No further orthopedic surgical intervention needed at this time Time with Patient: Less than 30
--- NOTE | 2018-03-10 11:48 | PN ---
PROGRESS NOTE DATE OF SERVICE: 03/10/2018. REASON FOR FOLLOWUP: Right lateral knee abscess and MRSA. INTERVAL HISTORY: The patient is currently afebrile. He is breathing comfortably. Denies any chest pain. No cough. No abdominal pain or pain to the right knee area which is currently decreased intensity. PHYSICAL EXAMINATION: On examination, blood pressure 102/60 with a pulse of 51, temperature 98.1. He is 98% on room air. General description is a middle-aged male lying in bed in no distress. RESPIRATORY SYSTEM: Unlabored breathing, clear to auscultation anteriorly. HEART: S1, S2. Regular rate and rhythm. ABDOMEN: Soft, no tenderness. Right knee currently dressed up, no obvious drainage on the dressing. LABS: Hemoglobin 12.3, white count 4.2 with a BUN of 14, creatinine 0.92. DIAGNOSTIC IMPRESSION AND PLAN: Patient with right knee lateral knee methicillin-resistant Staphylococcus aureus abscess with no involvement of the joint capsule. The patient will need to be on IV vancomycin pharmacy to dose target of 15 for at least 2 weeks for which a PICC line should be placed and advised placement in a halfway instead of discharging on outpatient IV antibiotic therapy. This was communicated to the patient's RN. Continue supportive care. MMODL / IJN: [id number] /
--- NOTE | 2018-03-10 15:03 | PN ---
PROGRESS NOTE DATE OF SERVICE: 03/10/2018. INTERVAL HISTORY: This 52-year-old gentleman who was admitted with right knee abscess, cellulitis and MRSA grown from the culture. No chest pain. No palpitations. No fever. Infectious disease is following the patient closely. PHYSICAL EXAM: Alert and oriented times three. Pulse 51, blood pressure 102/60, respiration 18, temperature 98.1, pulse ox 98 percent on room air. HEENT: Conjunctivae normal. NECK: No jugular venous distention. Cardiovascular: S1, S2. RESPIRATORY: Breath sounds diminished in bases. A few scattered rhonchi. No crackles. ABDOMEN: Soft. Legs: Right knee cellulitis and abscess. Nervous system: No focal deficits. LABS: WBC 4.2, hemoglobin 12.3. ASSESSMENT: 1. Right knee abscess cellulitis status post incision and drainage. Irrigation with MRSA. 2. History of MRSA previously. 3. History of previous cellulitis. 4. History of back surgery. 5. History of DJD. 6. History of bipolar depression. 7. History of cocaine, methamphetamine, substance abuse history. RECOMMENDATIONS AND DISCUSSION: Recommend to continue current medications. Continue to monitor, symptomatic treatment. Otherwise, antibiotics. We will closely follow with Infectious Disease and Dr. Manriquez would like to keep the patient until at least Thursday and then continue the IV antibiotics for now. Guarded prognosis. Further recommendations to follow. MMODL / IJN: [id number] /
[2018-03-10] MEDS: KETOROLAC 30 MG/ML 1 ML VIAL IVP PRN (15:54)
[2018-03-10] MEDS: VANCOMYCIN 1,500 MG in SODIUM CHLORIDE 0.9% 250 ML IVPB SCH (20:22)
[2018-03-11] MEDS: traMADol 50 MG TAB PO PRN (04:57)
[2018-03-11] MEDS: SODIUM CHLORIDE 0.9% 1,000 ML IV SCH (05:22)
[2018-03-11 07:45] LABS: Basophils % (A) 0 %; Eosinophils # (A) 0.1 k/uL (0-0.7); Eosinophils % (A) 4 %; HCT 38.2 % (39.0-53.0); HGB 11.9 gm/dL (13.0-17.5); Lymphocytes # (A) 1.3 k/uL (1.0-4.8); Lymphocytes % (A) 35 %; MCH 28.4 pg (25.0-35.0); MCHC 31.2 g/dL (31.0-37.0); Mean Platelet Volume 6.3; Monocytes # (A) 0.3 k/uL (0-1.0); Monocytes % (A) 8 %; Neutrophils # (A) 1.8 k/uL (1.3-7.7); Neutrophils % (A) 50 %; Platelet Count 207 k/uL (150-450); RDW 12.3 % (11.5-15.5); WBC 3.7 k/uL (3.8-10.6)
[2018-03-11 07:57] LABS: Anion Gap 3 mmol/L; Blood Urea Nitrogen 13 mg/dL (9-20); Calcium 8.8 mg/dL (8.4-10.2); Carbon Dioxide 28 mmol/L (22-30); Chloride 107 mmol/L (98-107); Glucose 81 mg/dL (74-99); Potassium 4.2 mmol/L (3.5-5.1); Sodium 138 mmol/L (137-145)
[2018-03-11] MEDS: HEPARIN SODIUM,PORCINE 5,000 UNIT/ML 1 ML VIAL SQ SCH ×2 (08:23→21:02)
[2018-03-11] MEDS: VANCOMYCIN 1,500 MG in SODIUM CHLORIDE 0.9% 250 ML IVPB SCH ×2 (08:24→21:03)
--- NOTE | 2018-03-11 11:26 | P.PN ---
Subjective Progress Note Date: 03/11/18 Principal diagnosis: Status post I&D right leg abscess Patient seen today resting in his hospital bed, he appears comfortable. Notes minimal discomfort in the right knee/leg Denies any fevers or chills. Objective - Vital Signs Vital signs: Vital Signs Temp 98.2 F 03/11/18 05:54 Pulse 53 L 03/11/18 05:54 Resp 18 03/11/18 05:54 BP 118/62 03/11/18 05:54 Pulse Ox 99 03/11/18 05:54 Intake & Output 03/10/18 03/11/18 03/11/18 18:59 06:59 18:59 Intake Total 480 2170 Balance 480 2170 Intake: Intake, IV Titration 1210 Amount Sodium Chloride 0.9% 1, 960 000 ml @ 80 mls/hr IV . [id number] [facility] Rx#:[id number] Vancomycin 1,250 mg In 250 Sodium Chloride 0.9% 250 ml @ 125 mls/hr IVPB Q8HR [facility] Rx#:[id number] Oral 480 960 Other: Voiding Method Toilet Toilet # Voids 3 3 - Exam Right lower extremity: No active drainage at this time, incisions clean, dry and intact. Calf is soft, no tenderness with palpation Distal neurovascular exam is intact - Labs CBC & Chem 7: 03/11/18 07:01 03/11/18 07:01 Labs: Abnormal Lab Results - Last 24 Hours (Table) 03/11/18 Range/Units 07:01 WBC 3.7 L (3.8-10.6) k/uL RBC 4.20 L (4.30-5.90) m/uL Hgb 11.9 L (13.0-17.5) gm/dL Hct 38.2 L (39.0-53.0) % Microbiology - Last 24 Hours (Table) 03/06/18 22:52 Blood Culture - Preliminary Blood No Growth after 96 hours 03/08/18 17:45 Anaerobic Culture - Preliminary Knee - Right 03/08/18 17:45 Anaerobic Culture - Preliminary Knee - Right 03/08/18 17:45 Gram Stain - Final Knee - Right Wound Culture - Final Methicillin resist S. aureus 03/08/18 17:45 Gram Stain - Final Knee - Right Wound Culture - Final Methicillin resist S. aureus 03/06/18 22:57 Gram Stain - Final Knee - Right Wound Culture - Final Methicillin resist S. aureus Assessment and Plan Plan: Assessment: Postoperative day #3 status post I&D right leg abscess Plan: Patient did have 1 more night in hospital with IV antibiotics, plan is for discharge on oral antibiotics GI and DVT prophylaxis per medical recommendations Pain control, continue use of oral medication Daily dressing changes No further orthopedic surgical intervention needed at this time Time with Patient: Less than 30
[2018-03-11 14:37] VITALS: RESP 16
--- NOTE | 2018-03-11 16:13 | PN ---
PROGRESS NOTE DATE OF SERVICE: 03/11/2018. This 52-year-old gentleman admitted with abscess and cellulitis of the right knee with MRSA has been closely monitored. Patient on IV antibiotics. No chest pain. No palpitations. No fever. PHYSICAL EXAM: Alert and oriented x3. Pulse 65, blood pressure 90/50, respiration 16, temperature 98.4, pulse ox 98% on room air. HEENT: Conjunctivae normal. Oral mucosa moist. NECK: No jugular venous distention. No carotid bruit. No lymph node enlargement. CARDIOVASCULAR: S1, S2 RESPIRATORY: Breath sounds diminished in the bases. A few scattered rhonchi and crackles. ABDOMEN: Soft, nontender. LEGS: No edema. NERVOUS SYSTEM: No focal deficits. LABS: WBC 3.2, hemoglobin 11.9. ASSESSMENT: 1. Right knee abscess and cellulitis, status post incision and drainage and irrigation with MRSA. 2. History of MRSA previously. 3. History of previous cellulitis. 4. History of back pain. 5. History of degenerative joint disease. 6. History of bipolar depression. 7. History of cocaine, amphetamine substance abuse. RECOMMENDATIONS AND DISCUSSION: I recommend to continue current management, continue with monitoring, symptomatic treatment. Otherwise at this time, continue antibiotics. Stop IV fluids. Guarded prognosis because of multiple complex medical issues. Further recommendations to follow. MMODL / IJN: [id number] /
--- NOTE | 2018-03-11 23:22 | PN ---
PROGRESS NOTE DATE OF SERVICE: 03/11/2018 REASON FOR FOLLOWUP: Right lateral knee MRSA abscess and cellulitis. HISTORY OF PRESENT ILLNESS: The patient is afebrile. He is currently breathing comfortably. Denies having any chest pain or shortness of breath or cough. No worsening pain to the right lateral knee area. No diarrhea. PHYSICAL EXAMINATION: Blood pressure is 96/53 with a pulse of 85, temperature 98.4. He is 96% on room air. General description is a middle-aged male lying in bed in no distress. RESPIRATORY SYSTEM: Unlabored breathing. Clear to auscultation. HEART: S1, S2. Regular rate and rhythm. ABDOMEN: Soft. No tenderness. RIGHT LATERAL KNEE: Area of swelling and redness has decreased. No drainage. LABS: Hemoglobin is 11.9, white count of 3.7. BUN of 13, creatinine 0.88. Blood culture has been negative. DIAGNOSTIC IMPRESSION AND PLAN: Patient with methicillin-resistant Staphylococcus aeruginosa right lateral knee abscess with no evidence of any bacteremia or involvement of the joint space. Patient to be high risk for any IV antibiotic therapy in outpatient setting, and no half-way will take him because of the him. He will be transitioned to Bactrim DS 1 twice a day for 10 days with close outpatient followup. Continue with supportive care. MMODL / IJN: [id number] /
[2018-03-12 06:07] VITALS: BP 113/68; PULSE 77; TEMP 98.4
[2018-03-12] MEDS: HEPARIN SODIUM,PORCINE 5,000 UNIT/ML 1 ML VIAL SQ SCH (08:30)
[2018-03-12] MEDS: VANCOMYCIN 1,500 MG in SODIUM CHLORIDE 0.9% 250 ML IVPB SCH (08:30)
[2018-03-12 08:37] LABS: Basophils % (A) 0 %; Eosinophils # (A) 0.1 k/uL (0-0.7); Eosinophils % (A) 3 %; HGB 13.9 gm/dL (13.0-17.5); Lymphocytes % (A) 27 %; MCH 29.4 pg (25.0-35.0); MCHC 32.2 g/dL (31.0-37.0); MCV 91.4 fL (80.0-100.0); Monocytes # (A) 0.2 k/uL (0-1.0); Monocytes % (A) 5 %; Neutrophils # (A) 2.3 k/uL (1.3-7.7); Neutrophils % (A) 64 %; Platelet Count 243 k/uL (150-450); RBC 4.71 m/uL (4.30-5.90); RDW 12.3 % (11.5-15.5); WBC 3.6 k/uL (3.8-10.6)
[2018-03-12 09:00] LABS: Anion Gap 8 mmol/L; Blood Urea Nitrogen 14 mg/dL (9-20); Calcium 9.4 mg/dL (8.4-10.2); Carbon Dioxide 26 mmol/L (22-30); Chloride 104 mmol/L (98-107); Glucose 110 mg/dL (74-99); Potassium 4.3 mmol/L (3.5-5.1); Sodium 138 mmol/L (137-145)
--- NOTE | 2018-03-12 10:19 | P.PN ---
Subjective Progress Note Date: 03/12/18 Principal diagnosis: Status post I&D right leg abscess Patient seen today resting in his hospital bed, he appears comfortable. Notes minimal discomfort in the right knee/leg Denies any fevers or chills. Objective - Vital Signs Vital signs: Vital Signs Temp 98.4 F 03/12/18 06:06 Pulse 77 03/12/18 06:06 Resp 16 03/12/18 06:06 BP 113/68 03/12/18 06:06 Pulse Ox 96 03/12/18 06:06 Intake & Output 03/11/18 03/12/18 03/12/18 18:59 06:59 18:59 Intake Total 640 560 Balance 640 560 Intake: Intake, IV Titration 640 560 Amount Sodium Chloride 0.9% 1, 640 60 000 ml @ 80 mls/hr IV . [id number] [facility] Rx#:[id number] Vancomycin 1,500 mg In 500 Sodium Chloride 0.9% 250 ml @ 125 mls/hr IVPB Q12H [facility] Rx#:[id number] Other: Voiding Method Toilet # Voids 3 2 - Exam Right lower extremity: No active drainage at this time, incisions clean, dry and intact. Calf is soft, no tenderness with palpation Distal neurovascular exam is intact - Labs CBC & Chem 7: 03/12/18 07:55 03/12/18 07:55 Labs: Abnormal Lab Results - Last 24 Hours (Table) 03/12/18 03/12/18 Range/Units 07:55 07:55 WBC 3.6 L (3.8-10.6) k/uL Glucose 110 H (74-99) mg/dL Microbiology - Last 24 Hours (Table) 03/06/18 22:52 Blood Culture - Preliminary Blood No Growth after 120 hours Assessment and Plan Plan: Assessment: Postoperative day #4 status post I&D right leg abscess Plan: Patient did have 1 more night in hospital with IV antibiotics, plan is for discharge on oral antibiotics GI and DVT prophylaxis per medical recommendations Pain control, continue use of oral medication Daily dressing changes No further orthopedic surgical intervention needed at this time, follow-up outpatient for suture removal Time with Patient: Less than 30
--- NOTE | 2018-03-12 18:08 | DS ---
DISCHARGE SUMMARY FINAL DIAGNOSES: 1. Right knee abscess cellulitis, status post incision and drainage and irrigation with MRSA. 2. History of Methicillin-resistant Staphylococcus aureus previously. 3. History of previous cellulitis. 4. History of back pain, degenerative joint disease. 5. History of bipolar depression. 6. History of cocaine and amphetamine substance abuse. DISCHARGE DISPOSITION: The patient is being discharged in stable condition with guarded prognosis. HISTORY OF PRESENT ILLNESS: This 52-year-old gentleman with a past medical history of multiple medical problems admitted with right knee abscess and cellulitis. The patient underwent drainage of the abscess. MRSA was grown from the culture. Dr. Manriquez and Dr. Quezada saw the patient during the hospitalization. Patient improved significantly. On exam, vital signs are stable. Cardiovascular: S1, S2. Abdomen: Soft. Nervous System: No focal deficits. DISCHARGED ADVICE: 1. Diet is cardiac. 2. Activities limited until follow up. 3. Follow with Dr. Tobar in 2 to 3 days. 4. Follow with Infectious Disease and Orthopedics as recommended. MEDICATIONS: Medications are as follows: 1. Pepcid 20 mg p.o. b.i.d. 2. Motrin 400 mg q.6h p.r.n. 3. Bactrim DS 1 p.o. b.i.d. for 10 days. Once again, the patient is being discharged in stable condition with guarded prognosis. MMODL / IJN: [id number] /
--- NOTE | 2018-03-12 18:11 | PN ---
PROGRESS NOTE DATE OF SERVICE: 03/12/2018. REASON FOR FOLLOWUP: Right lateral knee MRSA abscess with no evidence of septic arthritis. INTERVAL HISTORY: The patient is currently afebrile. He is breathing comfortably. Pain to the right lateral leg is currently controlled. Denies any chest pain, shortness of breath, or cough. No abdominal pain or any diarrhea. EXAMINATION: Blood pressure 113/68 with a pulse of 77, temperature 98.4. He is 96% on room air. General description is a middle aged male lying in bed in no distress. RESPIRATORY SYSTEM: Unlabored breathing. Clear to auscultation anteriorly. HEART: S1, S2. Regular rate and rhythm. ABDOMEN: Soft, no tenderness. Right lateral knee area swelling has improved, no drainage. LABS: White count 3.6, creatinine 0.49. DIAGNOSTIC IMPRESSION AND PLAN: Patient with MRSA right lateral knee abscess, status post drainage with no involvement of the joint. Plan at this time is to finish therapy with oral Bactrim DS 1 twice a day for 10 days with close outpatient followup. The patient advised if any worsening of swelling, redness or any fever to let us know right away. MMODL / IJN: [id number] /
[2018-03-13] MEDS ORDERED: VANCOMYCIN TROUGH DUE 1 EACH MISC MISCELLANE ONE (08:00)
== END 2018-03-12 14:45 | disposition home health service (06) | DRG 572 ==
LOC: EC 21:27 → 5MS5E 03-07 01:08
PROVIDERS: ADMIT Internal Medicine; ATTEND Internal Medicine
PROC: 0JBN0ZZ Excision of Right Lower Leg Subcutaneous Tissue and Fascia, Open Approach (ICD-10-PCS; principal; 2018-03-07)
DX: L03.115 Cellulitis of right lower limb (principal); L02.415 Cutaneous abscess of right lower limb; F31.9 Bipolar disorder, unspecified; B95.62 Methicillin resistant Staphylococcus aureus infection as the cause of diseases classified elsewhere; M19.90 Unspecified osteoarthritis, unspecified site; Z88.5 Allergy status to narcotic agent; Z86.14 Personal history of Methicillin resistant Staphylococcus aureus infection; Z91.81 History of falling; Z59.0 Homelessness; Z82.0 Family history of epilepsy and other diseases of the nervous system; Z87.891 Personal history of nicotine dependence
CPT/HCPCS: 36415; 80048; 80053; 80202; 80306; 81003; 85025; 85652; 86140; 87040; 87070; 87075; 87077; 87186; 87205; 96365; 96366; 99284

== ENCOUNTER 2023-06-24 06:02 | Day surgery (SDC) | payer OTHER ==
--- NOTE | 2023-06-23 08:42 | P.HPOR ---
History of Present Illness H&P Date: 06/23/23 Subjective: This is a 57 year old male that presents today for follow up evaluation regarding a several year history of progressively worsening left hand paresthesias in the thumb, index, middle and ring fingers. The patient has tried NSAIDs, gabapentin and splinting with little relief. The patient denies any inciting event or neck pain. He was previously scheduled to undergo a carpal tunnel release. However, he developed a infection and cellulitis in this operative extremity several days before his planned surgery date. Therefore, his surgery was canceled. He is now month and a half out from his infection and is off antibiotics and has no signs of recurrent infection at this point. Physical Examination: LUE: AIN/PIN/Radial/Ulnar/Median motor intact. Radial/Ulnar/Median SILT. 2+/4 Radial/Ulnar pulses palpated. 5/5 APB, 5/5 FDI. Negative Finkelsteins, negative CMC grind, positive Durkan's compression. Imaging: X-Rays of the left and 3 view reviewed from prior office visit demonstrates no acute fracture or dislocation. Advanced degenerative changes of the DIP joints of the index, middle, ring and small fingers. Chondrocalcinosis present at radial carpal joint. Impression: 1.) Left carpal tunnel syndrome Plan: Diagnosis and treatment options were discussed with the patient. We discussed we will wait until he is approximately 3 months out from his most recent cellulitic infection prior to any surgical intervention. The patient has failed conservative treatment and would like to pursue a left endoscopic vs open carpal tunnel release. Risks and benefits of surgery including bleeding, infection, damage to surrounding tissue, need for further surgery, possible need to convert to open procedure, residual numbness were discussed and the patient wished to go forward with surgery. PCP clearance is requested. CC: Maximilian Jeong MD -Sonny Eastman DO Orthopedic Hand/Upper Extremity Surgeon Past Medical History Past Medical History: No Reported History Additional Past Medical History / Comment(s): currently has rt aknle fx had a staph infection in rt wrist in past History of Any Multi-Drug Resistant Organisms: MRSA Date of last positivie culture/infection: 03/08/18 MDRO Source:: Right Knee Past Surgical History: Back Surgery, Orthopedic Surgery Additional Past Surgical History / Comment(s): bilateral elbow, 2 R knee surgeries pelvic surg plate and screws Past Anesthesia/Blood Transfusion Reactions: No Reported Reaction Smoking Status: Never smoker - Past Family History Father Additional Family Medical History / Comment(s): from staph infection Mother Additional Family Medical History / Comment(s): Alzheimers Medications and Allergies Home Medications Medication Instructions Recorded Confirmed Type Ibuprofen [Motrin] 400 mg PO Q6HR PRN #20 tab 03/12/18 06/19/23 Rx Citalopram Hydrobromide 40 mg PO DAILY 06/19/23 06/19/23 History [Citalopram HBr] Cyclobenzaprine [Flexeril] 10 mg PO BID 06/19/23 06/19/23 History Gabapentin 600 mg PO TID 06/19/23 06/19/23 History QUEtiapine FUMARATE 400 mg PO HS 06/19/23 06/19/23 History traZODone HCL [Desyrel] 50 mg PO HS 06/19/23 06/19/23 History Allergies Allergy/AdvReac Type Severity Reaction Status Date / Time meperidine [From Demerol] Allergy Itching Verified 06/19/23 11:45 Physical Examination Osteopathic Statement: *. No significant issues noted on an osteopathic structural exam other than those noted in the History and Physical/Consult.
[~2023-06-24 06:02] MED LIST: Pre Op ABX Message 1 EACH MISC MISCELLANE ONE
[2023-06-24] MEDS ORDERED: MIDAZOLAM 2 MG/2 ML VIAL IV PRN (06:30)
[2023-06-24] MEDS ORDERED: ONDANSETRON 4 MG/2 ML VIAL IVP ONE (06:30)
[2023-06-24] MEDS ORDERED: HYDROmorphone 0.5 MG/0.5 ML SYRINGE IVP PRN (06:30)
[2023-06-24] MEDS ORDERED: LACTATED RINGERS 1,000 ML IV SCH (06:30)
[2023-06-24] MEDS ORDERED: DEXAMETHASONE SOD PHOSPHATE 4 MG/ML 1 ML VIAL IV ONE (06:30)
[2023-06-24] MEDS ORDERED: LIDOCAINE 1% (10MG/ML) FOR IV START INTRADERMA PRN (06:30)
[2023-06-24 07:09] VITALS: TEMP 97.1
[2023-06-24] MEDS ORDERED: LIDOCAINE 2% INJ 20 MG/ML SQ ONE ×2 (07:24→07:30)
[2023-06-24] MEDS ORDERED: MIDAZOLAM 2 MG/2 ML VIAL ONE (07:24)
[2023-06-24] MEDS ORDERED: LIDOCAINE 1% INJ 10MG/ML (20 ML MDV) ONE (07:24)
[2023-06-24] MEDS ORDERED: BUPIVACAINE (PF) 0.5% 30 ML VIAL SQ ONE ×2 (07:24→07:30)
[2023-06-24] MEDS ORDERED: PROPOFOL 10 MG/ML 20 ML VIAL IV ONE (07:24)
[2023-06-24] MEDS ORDERED: fentaNYL (PF) 50 MCG/ML 2 ML AMP ONE (07:24)
--- NOTE | 2023-06-24 07:43 | P.OP ---
Date of Procedure: 06/24/23 Preoperative Diagnosis: Left carpal tunnel syndrome Postoperative Diagnosis: Left carpal tunnel syndrome Procedure(s) Performed: Left endoscopic carpal tunnel release Anesthesia: MAC Surgeon: Sonny Eastman Estimated Blood Loss (ml): 2 Pathology: none sent Condition: stable Disposition: PACU Description of Procedure: This is a 58 year old male who presents today for a left endoscopic carpal tunnel release after having failed conservative treatment in the past. Risks and benefits of surgery were discussed with the patient including bleeding, damage to surrounding tissue, infection, need to convert to open procedure, need for further surgery as well as risks of anesthesia including pulmonary embolism and even and the patient wished to proceed with surgical intervention. The patients was seen in the pre-operative area by myself. Consent and H&P were completed and updated. The correct extremity was marked in the pre-operative area by myself and all other questions were answered. Operative Narrative: The patient was brought to the operating room by the department of anesthesia. They remained on the portable stretcher and a rolling hand table was brought to the side of the operative extremity. Pre-operative time out was performed indicating the correct patient, procedure and laterality. All in the room agreed. The patient was then drifted off to sleep by the department of anesthesia. MAC anesthesia was utilized and a 50:50 mixture of 1% Lidocaine and 0.5% bupivacaine was injected into the subcutaneous tissues of the palmar skin, 8ccs total. A nonsterile tourniquet was then applied to the operative extremity and the left upper extremity was then prepped and draped in normal sterile fashion. The operative extremity was the exsanguinated with an esmarch bandage and the tourniquet was inflated to 250mmHg. 15 blade scalpel was utilized to make a transverse incision on the palmar skin just ulnar to the palmaris longus tendon at the level of the distal wrist crease. Ragnell retractor was then placed radially and blunt dissection was performed to reveal the distal forearm fascia. This was lifted with fine Jose Luis pick ups and Littler tenotomy scissors were then used to open the forearm fascia transversely and a double skin hook was then placed. Hamate finder was placed into the carpal tunnel and then sequential sized dilators were inserted followed by the synovial elevator to separate the flexor tenosynovium from the undersurface of the transverse carpal ligament and a washboard texture was felt. The MicroAire endoscopic carpal tunnel release system gun was the then inserted into the carpal tunnel hugging the deep portion of the transverse carpal ligament in line with the base of the ring finger. Transverse fibers of the ligament were directly visualized. Pressure was applied on the palm to reveal the distal extent of the transverse carpal ligament. The blade was then deployed and the distal half of the transverse carpal ligament was released. The scope was then brought distal again and remaining transverse fibers were incised with the blade. The proximal half of the transverse carpal ligament was then divided and again the scope was advanced distal and remaining transverse fibers were incised with the blade. The radial and ulnar leaflets were directly visualized and mobile consistent with complete release. Tenotomy scissors were then utilized to release the remaining distal forearm fascia under direct visualization taking care to preserve the palmar cutaneous branch of the median nerve. Skin closure was performed with interrupted 4-0 Monocryl suture followed by steri strips. Sterile dressing was applied consisting 4x4s, Webril, and an arnold bandage. Tourniquet was let down and the hand immediately was well perfused. The patient was then woken by the department of anesthesia and transferred to PACU in stable condition. Sonny Eastman D.O. Orthopedic Hand/Upper Extremity Surgeon
[2023-06-24 07:56] VITALS: PULSE 67; RESP 17
[2023-06-24 08:20] VITALS: BP 104/72
== END 2023-06-24 08:15 | disposition home or self-care (01) ==
LOC: OR 06:02
PROVIDERS: ATTEND Orthopaedic Surgery Hand Surgery
DX: G56.02 Carpal tunnel syndrome, left upper limb (principal); E05.90 Thyrotoxicosis, unspecified without thyrotoxic crisis or storm; Z98.890 Other specified postprocedural states; Z79.899 Other long term (current) drug therapy; Z88.5 Allergy status to narcotic agent; Z79.890 Hormone replacement therapy
CPT/HCPCS: 29848; J2001 ×2; J2250; J1100; J2405; J3010; J2704; J0665

== ENCOUNTER → 2024-08-18 | Outpatient (CLI) | payer OTHER ==
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
== END | disposition home or self-care (01) ==
LOC: RADMRIMAIN 15:50
PROVIDERS: ATTEND Internal Medicine
DX: M75.101 Unspecified rotator cuff tear or rupture of right shoulder, not specified as traumatic (principal); M19.011 Primary osteoarthritis, right shoulder; M67.813 Other specified disorders of tendon, right shoulder; M25.811 Other specified joint disorders, right shoulder

== ENCOUNTER 2024-10-24 19:04 | Observation (INO) | payer OTHER ==
[2024-10-24] MEDS ORDERED: VANCOMYCIN IV PER PHARMACY 1 EACH MISC MISCELLANE PRN (19:40)
--- NOTE | 2024-10-24 19:42 | ED ---
Recheck HPI - General Chief Complaint: Skin/Abscess/Foreign Body Stated Complaint: Infection Time Seen by Provider: 10/24/24 19:21 Source: patient, RN notes reviewed, old records reviewed Mode of arrival: ambulatory Limitations: no limitations - History of Present Illness Initial Comments: This is a 59 male to the ER for evaluation of back pain severe back pain history of back cellulitis history of back surgery paraplegic recurrent cellulitis of the back as well as significant what appears to be mass on his back. Patient also has history of lower extremity wounds and cellulitis. Patient is having severe pain fevers and chills MD Complaint: wound re-check, needs IV antibiotics, medication refill request -: days(s) Returns Today for: Called Because of Abnormal Lab/Test, needs IV antibiotics, persistent/worsening pain related to initial visit Symptoms Since Prior Visit: worsening pain, worsening swelling, worsening redness Treatments Prior to Arrival: Given Antibiotics on, Given Pain Meds on - Related Data Home Medications Medication Instructions Recorded Confirmed Cyclobenzaprine [Flexeril] 10 mg PO TID PRN 06/19/23 10/25/24 QUEtiapine FUMARATE 400 mg PO HS 06/19/23 10/25/24 traZODone HCL [Desyrel] 50 mg PO HS 06/19/23 10/25/24 Acetaminophen [Tylenol Extra 1,000 mg PO Q6H PRN 10/25/24 10/25/24 Strength] Calcium Carbonate [Calcium] 600 mg PO DAILY 10/25/24 10/25/24 Cephalexin [Keflex] 500 mg PO QID 10/25/24 10/25/24 Cholecalciferol [Vitamin D3 (25 50 mcg PO DAILY 10/25/24 10/25/24 Mcg = 1000 Iu)] Citalopram Hydrobromide [CeleXA] 20 mg PO DAILY 10/25/24 10/25/24 DULoxetine HCL [Cymbalta] 30 mg PO HS 10/25/24 10/25/24 Diclofenac Sodium [Diclofenac 4 gm TOPICAL QID 10/25/24 10/25/24 Sodium 1%] Doxycycline Hyclate 100 mg PO BID 10/25/24 10/25/24 Gabapentin [Neurontin] 800 mg PO TID 10/25/24 10/25/24 Lactulose 10 gm PO BID PRN 10/25/24 10/25/24 Meloxicam [Mobic] 15 mg PO DAILY 10/25/24 10/25/24 Sennosides [Senokot] 17.2 mg PO DAILY 10/25/24 10/25/24 Sulfamethox-Tmp 800-160Mg [Bactrim 1 tab PO BID 10/25/24 10/25/24 DS 800-160 mg] methocarbamoL [Robaxin-750] 750 mg PO TID PRN 10/25/24 10/25/24 oxyCODONE HCL [OxyIR] 5 mg PO Q6H PRN 10/25/24 10/25/24 Allergies Allergy/AdvReac Type Severity Reaction Status Date / Time meperidine [From Demerol] Allergy Itching Verified 10/25/24 10:06 Review of Systems ROS Statement: Those systems with pertinent positive or pertinent negative responses have been documented in the HPI. ROS Other: All systems not noted in ROS Statement are negative. Past Medical History Past Medical History: No Reported History Additional Past Medical History / Comment(s): currently has rt aknle fx had a staph infection in rt wrist in past History of Any Multi-Drug Resistant Organisms: MRSA Date of last positivie culture/infection: 03/08/18 MDRO Source:: Right Knee Past Surgical History: Back Surgery, Orthopedic Surgery Additional Past Surgical History / Comment(s): bilateral elbow, 2 R knee sarah geries pelvic surg plate and screws Past Anesthesia/Blood Transfusion Reactions: No Reported Reaction Past Psychological History: Bipolar, Depression Smoking Status: Never smoker Past Alcohol Use History: None Reported Past Drug Use History: Marijuana - Past Family History Father Additional Family Medical History / Comment(s): from staph infection Mother Additional Family Medical History / Comment(s): Alzheimers General Exam Limitations: no limitations General appearance: alert, in no apparent distress Head exam: Present: atraumatic, normocephalic, normal inspection Eye exam: Present: normal appearance, PERRL, EOMI. Absent: scleral icterus, conjunctival injection, periorbital swelling ENT exam: Present: normal exam, mucous membranes moist Neck exam: Present: normal inspection. Absent: tenderness, meningismus, lymphadenopathy Respiratory exam: Present: normal lung sounds bilaterally. Absent: respiratory distress, wheezes, rales, rhonchi, stridor Cardiovascular Exam: Present: regular rate, normal rhythm, normal heart sounds. Absent: systolic murmur, diastolic murmur, rubs, gallop, clicks GI/Abdominal exam: Present: soft, normal bowel sounds. Absent: distended, tenderness, guarding, rebound, rigid Extremities exam: Present: normal inspection, full ROM, normal capillary refill. Absent: tenderness, pedal edema, joint swelling, calf tenderness Back exam: Present: normal inspection Neurological exam: Present: alert, oriented X3, CN II-XII intact Psychiatric exam: Present: normal affect, normal mood Skin exam: Present: warm, dry, intact, normal color. Absent: rash Course Vital Signs 10/24/24 10/24/24 19:07 22:11 Temperature 98 F 97.6 F Pulse Rate 74 65 Respiratory 18 17 Rate Blood Pressure 93/51 127/81 O2 Sat by Pulse 99 98 Oximetry - Reevaluation(s) Reevaluation #1: 10/24/24 21:35 Medical records reviewed Reevaluation #2: 10/24/24 21:35 Patient symptoms improved Reevaluation #3: 10/24/24 21:35 Patient informed of results and questions answered Reevaluation #4: Was pt. sent in by a medical professional or institution (, PA, FORMULA MIXER, urgent care, hospital, or senior living...) When possible be specific @ -no Did you speak to anyone other than the patient for history (EMS, parent, family, police, friend...)? What history was obtained from this source @ -no Did you review nursing and triage notes (agree or disagree)? Why? @ -agree Are old charts reviewed (outside hosp., previous admission, EMS record, old EKG, old radiological studies, urgent care reports/EKG's, senior living records)? Report findings @ -yes Differential Diagnosis (chest pain, altered mental status, abdominal pain women, abdominal pain men, vaginal bleeding, weakness, fever, dyspnea, syncope, headache, dizziness, GI bleed, back pain, seizure, CVA, palpatations, mental health, musculoskeletal)? @ -prior EKG interpreted by me (3pts min.). @ -yes X-rays interpreted by me (1pt min.). @ -no CT interpreted by me (1pt min.). @ -yes negative for acute disease U/S interpreted by me (1pt. min.). @ -no What testing was considered but not performed or refused? (CT, X-rays, U/S, labs)? Why? @ -none What meds were considered but not given or refused? Why? @ -none Did you discuss the management of the patient with other professionals (professionals i.e. , PA, FORM[employer] MIXER, lab, RT, psych nurse, licensed clinical social worker, metal cutter, teacher, [employer] plans staff officer, telephonic case manager)? Give summary @ -no Was smoking cessation discussed for >3mins.? @ -no Was critical care preformed (if so, how long)? @ -no Were there social determinants of health that impacted care today? How? (Homelessness, low income, unemployed, alcoholism, drug addiction, transportation, low edu. Level, literacy, decrease access to med. care, fpc, rehab)? @ -none Was there de-escalation of care discussed even if they declined (Discuss DNR or withdrawal of care, Hospice)? DNR status @ -no What co-morbidities impacted this encounter? (DM, HTN, Smoking, COPD, CAD, Cancer, CVA, ARF, Chemo, Hep., AIDS, mental health diagnosis, sleep apnea, morbid obesity)? @ -none Was patient admitted / discharged? Hospital course, mention meds given and route, prescriptions, significant lab abnormalities, going to OR and other pertinent info. @ - 59 male to ER with severe back pain abdominal pain chest pain lower extremity edema cellulitis with infection, patient admitted for IV antibiotic Admitted Undiagnosed new problem with uncertain prognosis? @ -no Drug Therapy requiring intensive monitoring for toxicity (Heparin, Nitro, Insulin, Cardizem)? @ -no Were any procedures done? @ -no Diagnosis/symptom? @ -Back pain cellulitis chest pain Acute, or Chronic, or Acute on Chronic? @ -Acute Uncomplicated (without systemic symptoms) or Complicated (systemic symptoms)? @ -Complicated Side effects of treatment? @ -no Exacerbation, Progression, or Severe Exacerbation? @ -exacerbation Poses a threat to life or bodily function? How? (Chest pain, [place], [place], pneumonia, PE, COPD, DKA, ARF, appy, cholecystitis, CVA, Diverticulitis, Homicidal, Suicidal, threat to staff... and all critical care pts) @ -yes with chest pain Reevaluation #5: Differential Back Pain: Strain, zoster, cauda equina syndrome, epidural abscess, vertebral osteom yelitis, discitis, fracture, subluxation, disc herniation, DJD, spinal stenosis, dissection, AAA, pancreatitis, peptic ulcer disease, pyelonephritis, kidney stone, this is not meant to be an all-inclusive list. - Consultations Consultation #1: Spoke with [facility] who agrees to admit this patient Medical Decision Making - Medical Decision Making 59 male to ER with severe back pain abdominal pain chest pain lower extremity edema cellulitis with infection, patient admitted for IV antibiotic - Lab Data Result diagrams: 10/27/24 06:13 10/27/24 06:13 Lab Results 10/24/24 10/24/24 10/24/24 Range/Units 20:19 20:19 20:19 WBC 6.92 (4.50-10.00) 10*3/uL RBC 4.54 (4.40-5.60) 10*6/uL Hgb 13.0 (13.0-17.0) g/dL Hct 39.6 (39.6-50.0) % MCV 87.2 (80.0-97.0) fL MCH 28.6 (27.0-32.0) pg MCHC 32.8 (32.0-37.0) g/dL Plt Count 266 (140-440) 10*3/uL MPV 8.9 L (9.5-12.2) fL Immature Gran % (Auto) 0.6 % Neutrophils % 61.7 % Lymphocytes % 26.7 % Monocytes % 8.7 % Eosinophils % 2.0 % Basophils % 0.3 % Immature Gran # 0.04 (0.00-0.04) 10*3/uL Neutrophils # 4.27 (1.80-7.70) 10*3/uL Lymphocytes # 1.85 (0.90-5.00) 10*3/uL Monocytes # 0.60 (0.20-1.00) 10*3/uL Eosinophils # 0.14 (0.04-0.35) 10*3/uL Basophils # 0.02 (0.00-0.10) 10*3/uL PT 9.6 L (10.0-12.5) sec INR 0.8 (<1.2) APTT 22.3 (22.0-30.0) sec Sodium 136 L (137-145) mmol/L Potassium 4.0 (3.5-5.1) mmol/L Chloride 102 (98-107) mmol/L Carbon Dioxide 29 (22-30) mmol/L Anion Gap 5 mmol/L BUN 10 (9-20) mg/dL Creatinine 0.76 (0.66-1.25) mg/dL Est GFR (CKD-EPI)AfAm >90 (>60 ml/min/1.73 sqM) Est GFR (CKD-EPI)NonAf >90 (>60 ml/min/1.73 sqM) Glucose 81 (74-99) mg/dL Plasma Lactic Acid Rivas (0.7-2.0) mmol/L Calcium 10.1 (8.4-10.2) mg/dL Phosphorus 3.6 (2.5-4.5) mg/dL Magnesium 2.0 (1.6-2.3) mg/dL Total Bilirubin 0.5 (0.2-1.3) mg/dL AST 38 (17-59) U/L ALT 24 (4-49) U/L Alkaline Phosphatase 87 (38-126) U/L Troponin I (0.000-0.034) ng/mL C-Reactive Protein 1.0 H (<1.0) mg/dL NT-Pro-B Natriuret Pep 46 pg/mL Total Protein 7.4 (6.3-8.2) g/dL Albumin 4.3 (3.5-5.0) g/dL 10/24/24 10/24/24 Range/Units 20:19 20:19 WBC (4.50-10.00) 10*3/uL RBC (4.40-5.60) 10*6/uL Hgb (13.0-17.0) g/dL Hct (39.6-50.0) % MCV (80.0-97.0) fL MCH (27.0-32.0) pg MCHC (32.0-37.0) g/dL Plt Count (140-440) 10*3/uL MPV (9.5-12.2) fL Immature Gran % (Auto) % Neutrophils % % Lymphocytes % % Monocytes % % Eosinophils % % Basophils % % Immature Gran # (0.00-0.04) 10*3/uL Neutrophils # (1.80-7.70) 10*3/uL Lymphocytes # (0.90-5.00) 10*3/uL Monocytes # (0.20-1.00) 10*3/uL Eosinophils # (0.04-0.35) 10*3/uL Basophils # (0.00-0.10) 10*3/uL PT (10.0-12.5) sec INR (<1.2) APTT (22.0-30.0) sec Sodium (137-145) mmol/L Potassium (3.5-5.1) mmol/L Chloride (98-107) mmol/L Carbon Dioxide (22-30) mmol/L Anion Gap mmol/L BUN (9-20) mg/dL Creatinine (0.66-1.25) mg/dL Est GFR (CKD-EPI)AfAm (>60 ml/min/1.73 sqM) Est GFR (CKD-EPI)NonAf (>60 ml/min/1.73 sqM) Glucose (74-99) mg/dL Plasma Lactic Acid Rivas 0.9 (0.7-2.0) mmol/L Calcium (8.4-10.2) mg/dL Phosphorus (2.5-4.5) mg/dL Magnesium (1.6-2.3) mg/dL Total Bilirubin (0.2-1.3) mg/dL AST (17-59) U/L ALT (4-49) U/L Alkaline Phosphatase (38-126) U/L Troponin I <0.012 (0.000-0.034) ng/mL C-Reactive Protein (<1.0) mg/dL NT-Pro-B Natriuret Pep pg/mL Total Protein (6.3-8.2) g/dL Albumin (3.5-5.0) g/dL - EKG Data -: EKG Interpreted by Me (EKG is sinus bradycardia 54 HI 187 QRS 109 QTc 398) - Radiology Data Radiology results: report reviewed (CT chest abdomen pelvis LS spine negative for acute disease), image reviewed Disposition Clinical Impression: Cellulitis of right lower extremity without foot, Back pain, Cellulitis Disposition: ADMITTED IP TO THIS [facility] Condition: Stable Is patient prescribed a controlled substance at d/c from ED?: No Time of Disposition: 21:30
[2024-10-24 20:25] LABS: Basophils # (A) 0.02 10*3/uL (0.00-0.10); Basophils % (A) 0.3 %; Eosinophils # (A) 0.14 10*3/uL (0.04-0.35); HCT 39.6 % (39.6-50.0); Lymphocytes # (A) 1.85 10*3/uL (0.90-5.00); Lymphocytes % (A) 26.7 %; MCH 28.6 pg (27.0-32.0); MCHC 32.8 g/dL (32.0-37.0); MCV 87.2 fL (80.0-97.0); Mean Platelet Volume 8.9 fL (9.5-12.2); Monocytes % (A) 8.7 %; Neutrophils # (A) 4.27 10*3/uL (1.80-7.70); Neutrophils % (A) 61.7 %; Platelet Count 266 10*3/uL (140-440); RBC 4.54 10*6/uL (4.40-5.60); RDW 18.3 % (11.5-14.5); WBC 6.92 10*3/uL (4.50-10.00)
[2024-10-24] MEDS: SODIUM CHLORIDE 0.9% 1,000 ML IV ONE (20:33)
[2024-10-24] MEDS: ONDANSETRON 4 MG/2 ML VIAL IVP STA (20:33)
[2024-10-24] MEDS: MORPHINE SULFATE 4 MG/ML SYRINGE IV STA (20:34)
[2024-10-24 20:36] LABS: ALT 24 U/L (4-49); AST 38 U/L (17-59); African American GFR (CKD) >90 (>60 ml/min/1.73 sqM); Albumin 4.3 g/dL (3.5-5.0); Alkaline Phosphatase 87 U/L (38-126); Anion Gap 5 mmol/L; Blood Urea Nitrogen 10 mg/dL (9-20); Calcium 10.1 mg/dL (8.4-10.2); Carbon Dioxide 29 mmol/L (22-30); Chloride 102 mmol/L (98-107); Glucose 81 mg/dL (74-99); INR 0.8 (<1.2); Non-African American GFR(CKD) >90 (>60 ml/min/1.73 sqM); Partial Thromboplastin Time 22.3 sec (22.0-30.0); Phosphorus 3.6 mg/dL (2.5-4.5); Prothrombin Time 9.6 sec (10.0-12.5); Sodium 136 mmol/L (137-145); Total Bilirubin 0.5 mg/dL (0.2-1.3); Total Protein 7.4 g/dL (6.3-8.2)
[2024-10-24 20:42] LABS: NT-Pro-B-Type Natriuretic Pept 46 pg/mL
[2024-10-24] MEDS: SODIUM CHLORIDE 0.9% 1,000 ML IV SCH (21:16)
--- NOTE | 2024-10-24 21:28 | CT ---
EXAMINATION TYPE: CT ChestAbdPelvis w con, CT thor lumbar spine w con DATE OF EXAM: 10/24/2024 COMPARISON: NONE CLINICAL INDICATION: Male, 59 years old with history of pain, flank pain, infection, TECHNIQUE: CT scan of the thorax, abdomen and pelvis is performed with IV Contrast, patient injected with 100 ml mL of Isovue 300. CT DLP: combined DLP 960 mGycm. Automated Exposure Control for Dose Reduction was Utilized. CT of the thoracic and lumbar spine with IV contrast. FINDINGS: LUNGS: The lungs are grossly clear, there is no concerning parenchymal mass or nodule identified. T here is no pleural effusion or pneumothorax seen. The tracheobronchial tree is patent. HEART: Size within normal limits. No significant coronary artery calcifications. MEDIASTINUM: There are no greater than 1 cm hilar or mediastinal lymph nodes. No pericardial effusi on is seen. Ascending aorta measures up to 3.7 cm in diameter. OTHER: Small degree of bilateral subareolar gynecomastia. LIVER/GB: No significant abnormality is appreciated. PANCREAS: No significant abnormality is seen. SPLEEN: No significant abnormality is seen. ADRENALS: No significant abnormality is seen. KIDNEYS: No significant abnormality is seen. BOWEL: No significant abnormality is seen. GENITAL ORGANS: No gross abnormality seen. LYMPH NODES: No greater than 1cm abdominal or pelvic lymph nodes are appreciated. OSSEOUS STRUCTURES: Old fracture deformity right superior pelvic ramus extending into the anterior wa ll of the right hip. Moderate to advanced degenerative narrowing and spurring of both hip joints. Jono gical change in the lumbar spine extends into the right iliac bone. There are old fractures of the la teral left mid ribs. Thoracolumbar spine: There are 5 lumbar-type vertebra. There is scoliotic curvature in the thoracolum bar spine. There is posterior interpedicular rods and screws transfixing T6 and T7 levels through the T9 and T10 levels at site of sclerotic mild/moderate compression type fracture of the T8 vertebra. T here are posterior pedicular rods and screws transfixing L4-L5 levels. There is grade 1 anterolisthes is L4 on L5. There is cortical lucency with surrounding sclerosis involving the L3 vertebra. Mild hei ght loss is seen. Significant facet arthropathy in the lower lumbar spine is present. OTHER: Small amount of free fluid in the pelvis axial image 102 of uncertain etiology. IMPRESSION: 1. Scoliosis and multilevel degenerative change in the thoracolumbar spine. There is age-indetermina te suspected subacute fracture of the L3 vertebra now present. Correlate clinically. 2. Small amount of free fluid in the pelvis otherwise No suspicious acute findings within the thorax, abdomen, or pelvis identified. [facility], , 10/24/2024 9:25 PM
[2024-10-24] MEDS ORDERED: NALOXONE 0.4 MG/ML 1 ML VIAL IV PRN (21:30)
[2024-10-24] MEDS: VANCOMYCIN 1,500 MG in SODIUM CHLORIDE 0.9% 500 ML 500 ML IVPB STA (22:41)
[2024-10-24] MEDS: MORPHINE SULFATE 4 MG/ML SYRINGE IV PRN (23:54)
[2024-10-25 06:29] LABS: Basophils # (A) 0.01 10*3/uL (0.00-0.10); Basophils % (A) 0.2 %; Eosinophils # (A) 0.16 10*3/uL (0.04-0.35); Eosinophils % (A) 2.5 %; HCT 37.5 % (39.6-50.0); HGB 12.5 g/dL (13.0-17.0); Lymphocytes # (A) 1.44 10*3/uL (0.90-5.00); Lymphocytes % (A) 22.9 %; MCH 29.3 pg (27.0-32.0); MCHC 33.3 g/dL (32.0-37.0); MCV 87.8 fL (80.0-97.0); Mean Platelet Volume 9.2 fL (9.5-12.2); Monocytes # (A) 0.63 10*3/uL (0.20-1.00); Neutrophils # (A) 4.02 10*3/uL (1.80-7.70); Neutrophils % (A) 64.1 %; Platelet Count 248 10*3/uL (140-440); RBC 4.27 10*6/uL (4.40-5.60); RDW 18.3 % (11.5-14.5); WBC 6.28 10*3/uL (4.50-10.00)
[2024-10-25 07:04] LABS: ALT 20 U/L (4-49); AST 30 U/L (17-59); African American GFR (CKD) >90 (>60 ml/min/1.73 sqM); Albumin 3.3 g/dL (3.5-5.0); Alkaline Phosphatase 74 U/L (38-126); Anion Gap 5 mmol/L; Blood Urea Nitrogen 8 mg/dL (9-20); Carbon Dioxide 24 mmol/L (22-30); Chloride 106 mmol/L (98-107); Glucose 91 mg/dL (74-99); Magnesium 1.9 mg/dL (1.6-2.3); Non-African American GFR(CKD) >90 (>60 ml/min/1.73 sqM); Phosphorus 3.3 mg/dL (2.5-4.5); Sodium 135 mmol/L (137-145); Total Bilirubin 0.4 mg/dL (0.2-1.3); Total Protein 5.9 g/dL (6.3-8.2)
[2024-10-25] MEDS: ONDANSETRON 4 MG/2 ML VIAL IVP PRN (11:16)
[2024-10-25] MEDS: VANCOMYCIN 1,500 MG in SODIUM CHLORIDE 0.9% 500 ML 500 ML IVPB SCH (11:30)
[2024-10-25] MEDS ORDERED: LACTULOSE 20 GM/30 ML CUP PO PRN (12:27)
[2024-10-25] MEDS: DICLOFENAC SODIUM GEL 100 GM TUBE TOPICAL SCH (13:52)
[2024-10-25] MEDS: MELOXICAM 7.5 MG TAB PO SCH (13:52)
[2024-10-25] MEDS: GABAPENTIN 400 MG CAP PO SCH (13:53)
[2024-10-25] MEDS: SENNOSIDES 8.6 MG TAB PO SCH (13:53)
[2024-10-25] MEDS: PANTOPRAZOLE 40 MG TABLET PO SCH (14:28)
--- NOTE | 2024-10-25 15:04 | P.GSCN ---
History of Present Illness History of present illness: 59-year-old gentleman well-known to me from the past patient comes to the wound clinic for his wound on the right and left lower extremity. Patient has a history of paraplegia due to trauma in the past. Patient came to the emergency room complaining of pain in the back area patient had a CT scan of the sacral area suspect subacute fracture of L3 vertebra and no suspicious acute finding in the thoracic abdomen and pelvic area. Today patient had a vomiting at the time of examination Neck examinations neck is supple no bruit appreciated Chest is clear good in both lungs first second sound present abdomen is soft nontender lumbar area patient had a incision scar from the previous surgery patient also has a stage I pressure ulcer on her at the sacral area on examination femorals are present patient has a superficial wound on the right heel and also superficial wound to the lateral aspect of the lower leg for which we have been treating him in the wound clinic Plan is we have been using silver alginate's for the right and left lower leg wound this should be changed on every other day follow-up with you Patient will need titration of thoracic surgeon regarding L3 fracture Past Medical History Past Medical History: No Reported History Additional Past Medical History / Comment(s): currently has rt aknle fx had a staph infection in rt wrist in past History of Any Multi-Drug Resistant Organisms: MRSA Year Discovered:: 03/08/18 MDRO Source:: Right Knee Past Surgical History: Back Surgery, Orthopedic Surgery Additional Past Surgical History / Comment(s): bilateral elbow, 2 R knee diaz rgeries pelvic surg plate and screws Past Anesthesia/Blood Transfusion Reactions: No Reported Reaction Past Psychological History: Bipolar, Depression Smoking Status: Never smoker Past Alcohol Use History: None Reported Past Drug Use History: Marijuana - Past Family History Father Additional Family Medical History / Comment(s): from staph infection Mother Additional Family Medical History / Comment(s): Alzheimers Medications and Allergies Home Medications Medication Instructions Recorded Confirmed Type Cyclobenzaprine [Flexeril] 10 mg PO TID PRN 06/19/23 10/25/24 History QUEtiapine FUMARATE 400 mg PO HS 06/19/23 10/25/24 History traZODone HCL [Desyrel] 50 mg PO HS 06/19/23 10/25/24 History Acetaminophen [Tylenol Extra 1,000 mg PO Q6H PRN 10/25/24 10/25/24 History Strength] Calcium Carbonate [Calcium] 600 mg PO DAILY 10/25/24 10/25/24 History Cephalexin [Keflex] 500 mg PO QID 10/25/24 10/25/24 History Cholecalciferol [Vitamin D3 (25 50 mcg PO DAILY 10/25/24 10/25/24 History Mcg = 1000 Iu)] Citalopram Hydrobromide [CeleXA] 20 mg PO DAILY 10/25/24 10/25/24 History DULoxetine HCL [Cymbalta] 30 mg PO HS 10/25/24 10/25/24 History Diclofenac Sodium [Diclofenac 4 gm TOPICAL QID 10/25/24 10/25/24 History Sodium 1%] Doxycycline Hyclate 100 mg PO BID 10/25/24 10/25/24 History Gabapentin [Neurontin] 800 mg PO TID 10/25/24 10/25/24 History Lactulose 10 gm PO BID PRN 10/25/24 10/25/24 History Meloxicam [Mobic] 15 mg PO DAILY 10/25/24 10/25/24 History Sennosides [Senokot] 17.2 mg PO DAILY 10/25/24 10/25/24 History Sulfamethox-Tmp 800-160Mg [Bactrim 1 tab PO BID 10/25/24 10/25/24 History DS 800-160 mg] methocarbamoL [Robaxin-750] 750 mg PO TID PRN 10/25/24 10/25/24 History oxyCODONE HCL [OxyIR] 5 mg PO Q6H PRN 10/25/24 10/25/24 History Allergies Allergy/AdvReac Type Severity Reaction Status Date / Time meperidine [From Demerol] Allergy Itching Verified 10/25/24 10:06 Surgical - Exam Vital Signs Temp Pulse Resp BP Pulse Ox 98 F 74 18 93/51 99 10/24/24 19:07 10/24/24 19:07 10/24/24 19:07 10/24/24 19:07 10/24/24 19:07 Results - Labs 10/25/24 05:52 10/25/24 05:52 Abnormal Lab Results - Last 24 Hours (Table) 10/24/24 10/24/24 10/24/24 Range/Units 20:19 20:19 20:19 RBC (4.40-5.60) 10*6/uL Hgb (13.0-17.0) g/dL Hct (39.6-50.0) % MPV 8.9 L (9.5-12.2) fL PT 9.6 L (10.0-12.5) sec Sodium 136 L (137-145) mmol/L BUN (9-20) mg/dL C-Reactive Protein 1.0 H (<1.0) mg/dL Total Protein (6.3-8.2) g/dL Albumin (3.5-5.0) g/dL 10/25/24 10/25/24 Range/Units 05:52 05:52 RBC 4.27 L (4.40-5.60) 10*6/uL Hgb 12.5 L (13.0-17.0) g/dL Hct 37.5 L (39.6-50.0) % MPV 9.2 L (9.5-12.2) fL PT (10.0-12.5) sec Sodium 135 L (137-145) mmol/L BUN 8 L (9-20) mg/dL C-Reactive Protein (<1.0) mg/dL Total Protein 5.9 L (6.3-8.2) g/dL Albumin 3.3 L (3.5-5.0) g/dL Diabetes panel 10/24/24 10/25/24 Range/Units 20:19 05:52 Sodium 136 L 135 L (137-145) mmol/L Potassium 4.0 4.0 (3.5-5.1) mmol/L Chloride 102 106 (98-107) mmol/L Carbon Dioxide 29 24 (22-30) mmol/L BUN 10 8 L (9-20) mg/dL Creatinine 0.76 0.69 (0.66-1.25) mg/dL Glucose 81 91 (74-99) mg/dL Calcium 10.1 9.0 (8.4-10.2) mg/dL AST 38 30 (17-59) U/L ALT 24 20 (4-49) U/L Alkaline Phosphatase 87 74 (38-126) U/L Total Protein 7.4 5.9 L (6.3-8.2) g/dL Albumin 4.3 3.3 L (3.5-5.0) g/dL Calcium panel 10/24/24 10/25/24 Range/Units 20:19 05:52 Calcium 10.1 9.0 (8.4-10.2) mg/dL Phosphorus 3.6 3.3 (2.5-4.5) mg/dL Albumin 4.3 3.3 L (3.5-5.0) g/dL Pituitary panel 10/24/24 10/25/24 Range/Units 20:19 05:52 Sodium 136 L 135 L (137-145) mmol/L Potassium 4.0 4.0 (3.5-5.1) mmol/L Chloride 102 106 (98-107) mmol/L Carbon Dioxide 29 24 (22-30) mmol/L BUN 10 8 L (9-20) mg/dL Creatinine 0.76 0.69 (0.66-1.25) mg/dL Glucose 81 91 (74-99) mg/dL Calcium 10.1 9.0 (8.4-10.2) mg/dL Adrenal panel 10/24/24 10/25/24 Range/Units 20:19 05:52 Sodium 136 L 135 L (137-145) mmol/L Potassium 4.0 4.0 (3.5-5.1) mmol/L Chloride 102 106 (98-107) mmol/L Carbon Dioxide 29 24 (22-30) mmol/L BUN 10 8 L (9-20) mg/dL Creatinine 0.76 0.69 (0.66-1.25) mg/dL Glucose 81 91 (74-99) mg/dL Calcium 10.1 9.0 (8.4-10.2) mg/dL Total Bilirubin 0.5 0.4 (0.2-1.3) mg/dL AST 38 30 (17-59) U/L ALT 24 20 (4-49) U/L Alkaline Phosphatase 87 74 (38-126) U/L Total Protein 7.4 5.9 L (6.3-8.2) g/dL Albumin 4.3 3.3 L (3.5-5.0) g/dL
[2024-10-25] MEDS: HYDROmorphone 0.5 MG/0.5 ML SYRINGE IVP PRN (17:08)
[2024-10-25] MEDS: METOCLOPRAMIDE 5 MG/ML 2 ML VIAL IVP PRN (18:02)
--- NOTE | 2024-10-25 20:07 | P.HPIM ---
History of Present Illness H&P Date: 10/25/24 History of present illness; Patient is a 59-year-old male with paraplegia, history of back surgery, r ecurrent cellulitis who presents with back pain and enlarging back mass. He states he was seen Thursday10/21/2024 at [facility] with cellulitis in the right flank wrapping around his right lumbar back. Patient reports he was sent home with antibiotics Bactrim and Keflex. Patient reports wound care nurse came to home and recorded cellulitis site has increased in size since Thursday. He also has increasing pain in his back, which is worse with movement. Patient also has chronic right foot ulcer since April. Currently he is denying fever, chills, chest pain, shortness of breath. Spoke with the ER physician, patient admission was accepted by internal medicine service for treatment. REVIEW OF SYSTEMS: Pertinent positives and negatives noted in HPI. PHYSICAL EXAMINATION: Vitals reviewed GENERAL: Resting comfortably in bed. EYES: PERRL, no scleral injection or icterus. No vision loss HENT: Normocephalic, atraumatic, hearing grossly intact, moist mucous membranes NECK: No tracheal deviation, full range of motion. CARDIOVASCULAR: S1 and S2 present. No murmurs, rubs, or gallops. PULMONARY: Chest is clear to auscultation, no wheezing, rhonchi, or crackles. ABDOMEN: Soft, nontender, nondistended. No palpable organomegaly. MUSCULOSKELETAL: No apparent joint swelling and deformities. EXTREMITIES: R. lower extemity foot/ankle dressing NEUROLOGICAL: Alert and oriented. Gross neurological examination with no apparent focal deficits. SKIN: aprox. 7 inch fluctuant soft tissue mass, noncircumscribed, on right lower back, non-erythematous, mildly tender, warm and dry. ER FINDINGS: Labs significant for WBC 6.28, hemoglobin 12.5, sodium 135, CRP 1.0, troponin negative EKG independently interpreted showed sinus bradycardia heart rate of 54, QTc 398, no ST segment elevation or depression seen, no T-wave inversions seen. CT chest abdomen pelvis thoracic lumbar spine independently interpreted showed clear lungs, scoliosis and multilevel degenerative changes in thoracolumbar spine, suspected subacute fracture of L3 vertebrae, small free fluid in pelvis. Assessment and Plan: In summary, patient is a 59-year-old male with paraplegia, history of back surgery, recurrent cellulitis who presents with back pain and enlarging back mass. #Noncircumscribed fluctuant mass of lower back #Stage I pressure ulcer of sacrum #History of MRSA infection -ordered blood culture -start with ceftriaxone IVPB 2 g daily, with vancomycin dose per pharm Dr. Silver consulted, note reviewed' #Subacute fracture of L3 vertebrae Dilaudid 0.5 mg every 3 hours as needed for pain Surgery Dr. Kandy Muñoz consulted #Chronic right foot wound # Chronic left foot wound -Present on admission -Antibiotics as above Sterile dressing Local wound care # Nausea vomiting, due to possible gastroenteritis versus medication adverse effect Begin Reglan 5 mg IVP every 6 hours, Zofran 4 mg IVP every 4 hour and Compazine 10 mg IVP every 6 hours as needed for nausea and vomiting Consider discontinuing Dilaudid or [place] if worsening Monitor CBC and BMP Chronic Medical Conditions #Paraplegic, bipolar, depression, lumbar spine surgery, history of MRSA Resume home medication DVT ppx: Subq heparin 5000 units twice daily Code status: Full code F: IV Normal saline 75 mL/hr E: Replete as needed N: Regular diet A: Uses wheelchair Anticipated discharge place: Pending clinical course Anticipated discharge time: Pending clinical course Dictation was produced using [email or web address] dictation software. Please excuse any grammatical, word or spelling errors. Past Medical History Past Medical History: No Reported History Additional Past Medical History / Comment(s): currently has rt aknle fx had a staph infection in rt wrist in past History of Any Multi-Drug Resistant Organisms: MRSA Date of last positivie culture/infection: 03/08/18 MDRO Source:: Right Knee Past Surgical History: Back Surgery, Orthopedic Surgery Additional Past Surgical History / Comment(s): bilateral elbow, 2 R knee surge cristobal pelvic surg plate and screws Past Anesthesia/Blood Transfusion Reactions: No Reported Reaction Past Psychological History: Bipolar, Depression Smoking Status: Never smoker Past Alcohol Use History: None Reported Past Drug Use History: Marijuana - Past Family History Father Additional Family Medical History / Comment(s): from staph infection Mother Additional Family Medical History / Comment(s): Alzheimers Medications and Allergies Home Medications Medication Instructions Recorded Confirmed Type Cyclobenzaprine [Flexeril] 10 mg PO TID PRN 06/19/23 10/25/24 History QUEtiapine FUMARATE 400 mg PO HS 12/01/23 04/08/25 History traZODone HCL [Desyrel] 50 mg PO HS 06/19/23 10/25/24 History Acetaminophen [Tylenol Extra 1,000 mg PO Q6H PRN 10/25/24 10/25/24 History Strength] Calcium Carbonate [Calcium] 600 mg PO DAILY 10/25/24 10/25/24 History Cephalexin [Keflex] 500 mg PO QID 10/25/24 10/25/24 History Cholecalciferol [Vitamin D3 (25 50 mcg PO DAILY 10/25/24 10/25/24 History Mcg = 1000 Iu)] Citalopram Hydrobromide [CeleXA] 20 mg PO DAILY 10/25/24 10/25/24 History DULoxetine HCL [Cymbalta] 30 mg PO HS 10/25/24 10/25/24 History Diclofenac Sodium [Diclofenac 4 gm TOPICAL QID 10/25/24 10/25/24 History Sodium 1%] Doxycycline Hyclate 100 mg PO BID 10/25/24 10/25/24 History Gabapentin [Neurontin] 800 mg PO TID 10/25/24 10/25/24 History Lactulose 10 gm PO BID PRN 10/25/24 10/25/24 History Meloxicam [Mobic] 15 mg PO DAILY 10/25/24 10/25/24 History Sennosides [Senokot] 17.2 mg PO DAILY 10/25/24 10/25/24 History Sulfamethox-Tmp 800-160Mg [Bactrim 1 tab PO BID 10/25/24 10/25/24 History DS 800-160 mg] methocarbamoL [Robaxin-750] 750 mg PO TID PRN 10/25/24 10/25/24 History oxyCODONE HCL [OxyIR] 5 mg PO Q6H PRN 10/25/24 10/25/24 History Allergies Allergy/AdvReac Type Severity Reaction Status Date / Time meperidine [From Demerol] Allergy Itching Verified 10/25/24 10:06 Physical Exam Vitals: Vital Signs Temp Pulse Pulse Resp BP BP Pulse Ox 10/25/24 06:42 97.9 F 60 18 128/86 95 10/25/24 01:05 97.9 F 72 17 107/65 96 10/24/24 22:42 97.9 F 61 17 130/78 97 10/24/24 22:11 97.6 F 65 17 127/81 98 10/24/24 19:07 98 F 74 18 93/51 99 Intake and Output 10/24/24 10/25/24 10/25/24 22:59 06:59 14:59 Output Total 2200 1100 Balance -2200 -1100 Output: Urine 2200 1100 Other: Voiding Method Self-Catheterization Weight 81.647 kg Results CBC & Chem 7: 10/25/24 05:52 10/25/24 05:52 Labs: Abnormal Lab Results - Last 24 Hours (Table) 10/24/24 10/24/24 10/24/24 Range/Units 20:19 20:19 20:19 RBC (4.40-5.60) 10*6/uL Hgb (13.0-17.0) g/dL Hct (39.6-50.0) % MPV 8.9 L (9.5-12.2) fL PT 9.6 L (10.0-12.5) sec Sodium 136 L (137-145) mmol/L BUN (9-20) mg/dL C-Reactive Protein 1.0 H (<1.0) mg/dL Total Protein (6.3-8.2) g/dL Albumin (3.5-5.0) g/dL 10/25/24 10/25/24 Range/Units 05:52 05:52 RBC 4.27 L (4.40-5.60) 10*6/uL Hgb 12.5 L (13.0-17.0) g/dL Hct 37.5 L (39.6-50.0) % MPV 9.2 L (9.5-12.2) fL PT (10.0-12.5) sec Sodium 135 L (137-145) mmol/L BUN 8 L (9-20) mg/dL C-Reactive Protein (<1.0) mg/dL Total Protein 5.9 L (6.3-8.2) g/dL Albumin 3.3 L (3.5-5.0) g/dL Thrombosis Risk Factor Assmnt - Choose All That Apply Any of the Below Risk Factors Present?: Yes Each Factor Represents 1 point: Age 41-60 years, Obesity (BMI >25) Thrombosis Risk Factor Assessment Total Risk Factor Score: 2 Thrombosis Risk Factor Assessment Level: Low Risk
[2024-10-25] MEDS: PROCHLORPERAZINE INJ 10 MG/2 ML VIAL IVP PRN (21:05)
[2024-10-25] MEDS: traZODone HCL 50 MG TAB PO SCH (23:47)
[2024-10-25] MEDS: QUEtiapine 400 MG TAB PO SCH (23:48)
[2024-10-25] MEDS: DULoxetine HCL 30 MG CAPSULE.DR PO SCH (23:48)
[2024-10-25] MEDS: HEPARIN SODIUM,PORCINE 5,000 UNIT/ML 1 ML VIAL SQ SCH (23:53)
[2024-10-26] MEDS: ONDANSETRON 4 MG/2 ML VIAL IVP PRN (00:03)
[2024-10-26] MEDS: diphenhydrAMINE 50 MG/ML 1 ML VIAL IVP PRN (01:50)
--- NOTE | 2024-10-26 02:15 | XR ---
EXAM: XR Chest, 1 View CLINICAL HISTORY: increased Shortness of breath TECHNIQUE: Frontal view of the chest. COMPARISON: No relevant prior studies available. FINDINGS: Lungs: Subtle linear opacities in the left lung especially over left upper lung zone. Pleural space: Unremarkable. Mediastinum: Unremarkable. Normal mediastinal contour. Bones/joints: Bilateral rib fractures. Lower thoracic posterior fusion hardware. IMPRESSION: Subtle linear opacities in the left lung especially over left upper lung zone can represent scarring versus atelectasis. Superimposed pneumonia is difficult to exclude.
[2024-10-26 02:42] LABS: Influenza A Not Detected (Not Detectd); Influenza B Not Detected (Not Detectd); RSV Not Detected (Not Detectd)
[2024-10-26 08:25] LABS: Basophils # (A) 0.02 X 10*3/uL (0.00-0.10); Basophils % (A) 0.2 %; Eosinophils # (A) 0.05 X 10*3/uL (0.04-0.35); Eosinophils % (A) 0.6 %; HCT 43.9 % (39.6-50.0); HGB 13.9 g/dL (13.0-17.0); Lymphocytes % (A) 15.6 %; MCH 28.1 pg (27.0-32.0); MCHC 31.7 g/dL (32.0-37.0); MCV 88.9 FL (80.0-97.0); Mean Platelet Volume 9.4 FL (9.5-12.2); Monocytes # (A) 0.78 X 10*3/uL (0.20-1.00); Monocytes % (A) 9.3 %; NRBC Per 100 WBC 0 X 10*3/uL (0.00-0.01); Neutrophils # (A) 6.16 X 10*3/uL (1.80-7.70); Neutrophils % (A) 73.8 %; Platelet Count 312 X 10*3/uL (140-440); RBC 4.94 X 10*6/uL (4.40-5.60); WBC 8.35 X 10*3/uL (4.50-10.00)
[2024-10-26 08:26] LABS: BUN/Creat Ratio 7.83 Ratio (12.00-20.00); Blood Urea Nitrogen 4.7 mg/dL (9.0-27.0); Calcium 9.8 mg/dL (8.7-10.3); Carbon Dioxide 23.4 mmol/L (21.6-31.8); Chloride 101 mmol/L (96-109); Glucose 84 mg/dL (70-110); Potassium 4.1 mmol/L (3.5-5.5); Sodium 139 mmol/L (135-145)
[2024-10-26] MEDS: KETOROLAC 15 MG/ML 1 ML VIAL IVP PRN (15:48)
--- NOTE | 2024-10-26 16:06 | MR ---
EXAMINATION TYPE: MR lumbar spine wo/w con DATE OF EXAM: 10/26/2024 3:16 PM COMPARISON: 10/24/2024. CLINICAL INDICATION: Male, 59 years old with history of Severe low back pain, hx of prior fusion, L3 fx; PHH, Severe low back pain, hx of prior fusion, L3 fx, patient is paraplegic. TECHNIQUE: Multi planar, multi sequence imaging was performed utilizing: T1-weighted, T2-weighted, a nd turbo inversion recovery imaging of the lumbar spine. IV Contrast: 8 mL Gadobutrol (None, if empty) FINDINGS: Alignment: The lumbar vertebral bodies have preserved heights with grade 1 anterolisthesis of L4 on L 5. Cord: The conus medullaris and the distal spinal cord appear unremarkable with regards to their signa l intensity and morphology. Bones/Discs: Fixation hardware L4-L5. There is degeneration changes of the spine with Schmorl's node is present. There is some bony edema surrounding all 3 superior and inferior endplate deformities as well as anteriorly along the L2 vertebral body superior endplate. There is low T1 signal curvilinear line extending to the mid vertebral body corresponding to fracture seen on CT with 50% contrast. Fixa tion hardware also seen in the right sacroiliac joints. Multilevel osteophytes, facet arthropathy and disc space narrowing present. T12-L1: No evidence of significant spinal canal stenosis or neural foraminal stenosis. L1-L2: No evidence of significant spinal canal stenosis or neural foraminal stenosis. L2-L3: Disc bulge and facet joint arthropathy result in mild spinal canal and mild bilateral neural f oraminal stenosis. L3-L4: No evidence of significant spinal canal stenosis. Facet joint arthropathy moderate bilateral n eural foraminal stenosis. L4-L5: Fixation hardware present. Disc uncovering from grade 1 anterolisthesis and facet joint arthro zay with mild spinal canal stenosis and mild to moderate bilateral neural foraminal stenosis. L5-S1: The disc has a rounded posterior morphology without significant spinal canal stenosis. Facet j oint arthropathy with mild to moderate bilateral neural foraminal stenosis. No significant spinal canal or neural foraminal stenosis in the remainder of the visualized levels. IMPRESSION: 1. Bony edema within the L3 vertebral body with cortical step-off of the L3 superior and inferior en dplates of the vertebral body concerning for acute/subacute fracture. 2. Grade 1 anterolisthesis of L4 and L5 with fixation hardware in place. There is mild to moderate b ilateral neural foraminal stenosis. 3. Moderate to severe degeneration changes of the spine with fixation hardware L4-L5 and the right s acroiliac joint. No foraminal stenosis mild to moderate at this level. [facility], , 10/26/2024 4:04 PM
--- NOTE | 2024-10-26 16:27 | P.PN ---
Progress Note - Text 59-year-old gentleman well-known to me from the wound clinic history of paraplegic patient has been coming to the wound clinic for wound on his right and left foot leg right heel has a wound on left lower leg has a wound we have been treating local wound care patient has no fever or chills present we have changed the dressing using silver alginate as it should be changed every other day if patient goes home will follow-up with the wound clinic
--- NOTE | 2024-10-26 17:14 | P.PN ---
Subjective Progress Note Date: 10/26/24 History of present illness; Patient is a 59-year-old male with paraplegia, history of back surgery, recurre nt cellulitis who presents with back pain and enlarging back mass. He states he was seen Thursday10/21/2024 at [facility] with cellulitis in the right flank wrapping around his right lumbar back. Patient reports he was sent home with antibiotics Bactrim and Keflex. Patient reports wound care nurse came to home and recorded cellulitis site has increased in size since Thursday. He also has increasing pain in his back, which is worse with movement. Patient also has chronic right foot ulcer since April. Currently he is denying fever, chills, chest pain, shortness of breath. REVIEW OF SYSTEMS: Pertinent positives and negatives noted in HPI. 10/26/24 Patient seen and examined at bedside. Patient with nausea and vomiting overnight which has seemed to improve with medication regiment. He is now complaining of constipation, and then subsequently had bowel movement with enema . PHYSICAL EXAMINATION: Vitals reviewed GENERAL: Resting comfortably in bed. EYES: PERRL, no scleral injection or icterus. No vision loss HENT: Normocephalic, atraumatic, hearing grossly intact, moist mucous membranes NECK: No tracheal deviation, full range of motion. CARDIOVASCULAR: S1 and S2 present. No murmurs, rubs, or gallops. PULMONARY: Chest is clear to auscultation, no wheezing, rhonchi, or crackles. ABDOMEN: Soft, nontender, nondistended. No palpable organomegaly. MUSCULOSKELETAL: No apparent joint swelling and deformities. EXTREMITIES: R. lower extemity foot/ankle dressing NEUROLOGICAL: Alert and oriented. Gross neurological examination with no apparent focal deficits. SKIN: aprox. 7 inch fluctuant soft tissue mass, noncircumscribed, on right lower back, non-erythematous, mildly tender, warm and dry. ER FINDINGS: Labs significant for WBC 6.28, hemoglobin 12.5, sodium 135, CRP 1.0, troponin negative EKG independently interpreted showed sinus bradycardia heart rate of 54, QTc 398, no ST segment elevation or depression seen, no T-wave inversions seen. CT chest abdomen pelvis thoracic lumbar spine independently interpreted showed clear lungs, scoliosis and multilevel degenerative changes in thoracolumbar spine, suspected subacute fracture of L3 vertebrae, small free fluid in pelvis. Assessment and Plan: In summary, patient is a 59-year-old male with paraplegia, history of back surgery, recurrent cellulitis who presents with back pain and enlarging back swelling. #Noncircumscribed fluctuant swelling of lower back #Stage I pressure ulcer of sacrum #History of MRSA infection -ordered blood culture -start with ceftriaxone IVPB 2 g daily, with vancomycin dose per pharm Dr. Silver consulted, plan discussed - ID consulted #Chronic right foot wound -Present on admission -Antibiotics as above Sterile dressing Local wound care -ID consulted #Subacute fracture of L3 vertebrae Dilaudid 0.5 mg every 3 hours as needed for pain Surgery Dr. Kandy Muñoz consulted # Nausea vomiting, due to possible gastroenteritis versus medication adverse effect Begin Reglan 5 mg IVP every 6 hours, Zofran 4 mg IVP every 4 hour and Compazine 10 mg IVP every 6 hours as needed for nausea and vomiting Consider discontinuing Dilaudid or [place] if worsening Monitor CBC and BMP Chronic Medical Conditions #Paraplegic, bipolar, depression, lumbar spine surgery, history of MRSA Resume home medication DVT ppx: Subq heparin 5000 units twice daily Code status: Full code F: PO E: Replete as needed N: Regular diet A: Uses wheelchair Anticipated discharge place: Pending clinical course Anticipated discharge time: Pending clinical course Dictation was produced using [employer] dictation software. Please excuse any grammatical, word or spelling errors. Objective - Vital Signs Vital signs: Vital Signs Temp 98.1 F 10/26/24 13:00 Pulse 101 H 10/26/24 13:00 Resp 17 10/26/24 13:00 BP 144/88 10/26/24 13:00 Pulse Ox 99 10/26/24 13:00 FiO2 Intake & Output 10/25/24 10/26/24 10/26/24 18:59 06:59 18:59 Output Total 2300 1400 Balance -2300 -1400 Output: Urine 2300 1400 Other: Voiding Method Self-Catheterization Self-Catheterization Self-Catheterization - Labs CBC & Chem 7: 10/26/24 05:12 10/26/24 05:12 Labs: Abnormal Lab Results - Last 24 Hours (Table) 10/26/24 10/26/24 Range/Units 05:12 05:12 MCHC 31.7 L (32.0-37.0) g/dL RDW 18.0 H (11.5-14.5) % MPV 9.4 L (9.5-12.2) FL Anion Gap 14.60 H (4.00-12.00) mmol/L BUN 4.7 L (9.0-27.0) mg/dL BUN/Creatinine Ratio 7.83 L (12.00-20.00) Ratio Microbiology - Last 24 Hours (Table) 10/24/24 20:19 Blood Culture - Preliminary Blood
[2024-10-26] MEDS: HYDROcodone/APAP 5-325MG 1 EACH TAB PO PRN (17:34)
--- NOTE | 2024-10-26 18:28 | P.CNOR ---
History of Present Illness - [facility] Consult date: 10/26/24 Requesting physician: All Lazo Consult reason: fracture (L3 Compression fracture; right low back mass) History of present illness: Patient is a very pleasant 59-year-old male who is seen examined at the bedside for further evaluation of his lumbar spine. He states he had presented to [facility] with a developing mass in his right lower flank/lumbar spine area. He states he was diagnosed with cellulitis, given medication, and discharged. He states the mass continued to enlarge and he presented to [facility] for further evaluation. Patient does not have any apparent cellulitis at his lumbar spine. He does have a swelling like mass without a palpable fluid collection over his right lower lumbar spine near the flank area. He has undergone multiple imaging modalities during his admission. Thoracic and lumbar spine CT imaging was performed which showed evidence of an acute L3 compression fracture deformity. Patient denies any recent injuries. 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 He underwent surgical intervention at in [place], [place] with stabilization of his fracture with retained hardware at T6, T7, T9, and T10. Following that spinal cord injury, he is a paraplegic. He is unable to sense any feeling from the chest down through his lower extremities. He states he has been feeling some pain inside his lumbar spine but does not have any pain or sensation with palpation over his skin. He does not have any pain with palpation over the right lower lumbar/flank mass. He states he no longer follows with her surgeon who performed his surgery last February. He states that his Worker's Compensation. He states he has significant difficulty with his cervical spine as well. He is currently undergoing treatment and evaluation with Dr. Festus Whitlock who is planning to proceed forward with surgical intervention at his cervical spine once approved. They are currently working through the approval process. Following his spinal cord injury, he has had significant difficulty with his mobilization. He has significant bedsores/wounds over his bilateral buttocks that is being treated. It has been improving. He also has a heel wound in his right lower extremity being treated by Dr. Silver. Patient also admits to previous pelvic injury status post fall in 2020 requiring pinning at his pelvis. He is admitted to medicine. CT of the chest, abdomen, and pelvis has also been performed. Past Medical History Past Medical History: No Reported History Additional Past Medical History / Comment(s): currently has rt aknle fx had a s taph infection in rt wrist in past History of Any Multi-Drug Resistant Organisms: MRSA Year Discovered:: 03/08/18 MDRO Source:: Right Knee Past Surgical History: Back Surgery, Orthopedic Surgery Additional Past Surgical History / Comment(s): bilateral elbow, 2 R knee surgeries pelvic surg plate and screws Past Anesthesia/Blood Transfusion Reactions: No Reported Reaction Past Psychological History: Bipolar, Depression Smoking Status: Never smoker Past Alcohol Use History: None Reported Past Drug Use History: Marijuana - Past Family History Father Additional Family Medical History / Comment(s): from staph infection Mother Additional Family Medical History / Comment(s): Alzheimers Medications and Allergies Home Medications Medication Instructions Recorded Confirmed Type Cyclobenzaprine [Flexeril] 10 mg PO TID PRN 06/19/23 10/25/24 History QUEtiapine FUMARATE 400 mg PO HS 06/19/23 10/25/24 History traZODone HCL [Desyrel] 50 mg PO HS 06/19/23 10/25/24 History Acetaminophen [Tylenol Extra 1,000 mg PO Q6H PRN 10/25/24 10/25/24 History Strength] Calcium Carbonate [Calcium] 600 mg PO DAILY 10/25/24 10/25/24 History Cephalexin [Keflex] 500 mg PO QID 10/25/24 10/25/24 History Cholecalciferol [Vitamin D3 (25 50 mcg PO DAILY 10/25/24 10/25/24 History Mcg = 1000 Iu)] Citalopram Hydrobromide [CeleXA] 20 mg PO DAILY 10/25/24 10/25/24 History DULoxetine HCL [Cymbalta] 30 mg PO HS 10/25/24 10/25/24 History Diclofenac Sodium [Diclofenac 4 gm TOPICAL QID 10/25/24 10/25/24 History Sodium 1%] Doxycycline Hyclate 100 mg PO BID 10/25/24 10/25/24 History Gabapentin [Neurontin] 800 mg PO TID 10/25/24 10/25/24 History Lactulose 10 gm PO BID PRN 10/25/24 10/25/24 History Meloxicam [Mobic] 15 mg PO DAILY 10/25/24 10/25/24 History Sennosides [Senokot] 17.2 mg PO DAILY 10/25/24 10/25/24 History Sulfamethox-Tmp 800-160Mg [Bactrim 1 tab PO BID 10/25/24 10/25/24 History DS 800-160 mg] methocarbamoL [Robaxin-750] 750 mg PO TID PRN 10/25/24 10/25/24 History oxyCODONE HCL [OxyIR] 5 mg PO Q6H PRN 10/25/24 10/25/24 History Allergies Allergy/AdvReac Type Severity Reaction Status Date / Time meperidine [From Demerol] Allergy Itching Verified 10/25/24 10:06 Physical Examination Osteopathic Statement: *. No significant issues noted on an osteopathic structural exam other than those noted in the History and Physical/Consult. Physical exam: Patient is awake, alert, and oriented 3 Vital signs stable Good chest excursion with deep inspiration and expiration Abdomen soft nontender Examination of thoracic and lumbar spine reveals skin is intact with no a brasions, lacerations, or bruises; no erythema, purulence or signs of infection Well-healed incisions over the midline of the mid thoracic spine and lower lumbar spine Well-healed incision towards her right iliac crest Evidence of a mass over the right flank/lumbar spine area without evidence of erythema bruising, or palpable fluid collection No obvious infection superficially at this area over his right flank/lumbar spine Patient is unable to sense any palpation over his mid to lower thoracic spine and lumbar spine or bilateral lower extremities Boots intact bilateral lower extremities Right foot pressure ulcer currently dressed Results Pertinent studies: CT of the thoracic and lumbar spine taken on 10/24/2024: Evidence of previous fracture at T8 with evidence of fusion with retained hardware at T6, T7, T9, and T10; evidence of age-indeterminate but expected at least subacute fracture of L3 through the vertebral body; L4-5 evidence of previous fusion with retained hardware and spondylolisthesis; significant lumbar spondylosis - Labs Labs: Abnormal Lab Results - Last 24 Hours (Table) 10/26/24 10/26/24 Range/Units 05:12 05:12 MCHC 31.7 L (32.0-37.0) g/dL RDW 18.0 H (11.5-14.5) % MPV 9.4 L (9.5-12.2) FL Anion Gap 14.60 H (4.00-12.00) mmol/L BUN 4.7 L (9.0-27.0) mg/dL BUN/Creatinine Ratio 7.83 L (12.00-20.00) Ratio Microbiology - Last 24 Hours (Table) 10/24/24 20:19 Blood Culture - Preliminary Blood H & H 10/24/24 10/25/24 10/26/24 Range/Units 20:19 05:52 05:12 Hgb 13.0 12.5 L 13.9 (13.0-17.0) g/dL Hct 39.6 37.5 L 43.9 (39.6-50.0) % Coagulation 10/24/24 Range/Units 20:19 INR 0.8 (<1.2) Result Diagrams: 10/26/24 05:12 10/26/24 05:12 Assessment and Plan Assessment: Assessment: Paraplegic following previous spinal cord injury at T8 History of thoracic fusion T6-10 following T8 acute traumatic fracture Right flank/lower lumbar spine swelling/mass of unknown origin L3 compression fracture deformity Low back pain L4-5 history of fusion with retained hardware L4-5 spondylolisthesis Lumbar spondylosis Right foot wound Pressure ulcers of the bilateral buttocksacrum (1) L3 vertebral fracture Current Visit: Yes Status: Acute Code(s): S32.039A - UNSP FRACTURE OF THIRD LUMBAR VERTEBRA, INIT FOR CLOS FX SNOMED Code(s): 003690194 (2) Low back pain Current Visit: Yes Status: Acute Code(s): M54.50 - LOW BACK PAIN, UNSPECIFIED SNOMED Code(s): 712474803 (3) Spondylolisthesis, lumbar region Current Visit: Yes Status: Acute Code(s): M43.16 - SPONDYLOLISTHESIS, LUMBAR REGION SNOMED Code(s): 886464312337529 (4) History of lumbar spinal fusion Current Visit: Yes Status: Acute Code(s): Z98.1 - ARTHRODESIS STATUS SNOMED Code(s): 17579645608683 (5) Spinal cord injury, T7-T12 Current Visit: Yes Status: Acute Code(s): S24.103A - UNSP INJURY AT T7-T10 LEVEL OF THORACIC SPINAL CORD, INIT SNOMED Code(s): 960671167 (6) Paraplegia Current Visit: Yes Status: Acute Code(s): G82.20 - PARAPLEGIA, UNSPECIFIED SNOMED Code(s): 72130740 (7) Foot ulcer Current Visit: Yes Status: Acute Code(s): L97.509 - NON-PRESSURE CHRONIC ULCER OTH PRT UNSP FOOT W UNSP SEVERITY SNOMED Code(s): 55394689 (8) History of pelvic fracture Current Visit: Yes Status: Acute Code(s): Z87.81 - PERSONAL HISTORY OF (HEALED) TRAUMATIC FRACTURE SNOMED Code(s): 024019471 (9) Mass of skin of back Current Visit: Yes Status: Acute Code(s): R22.2 - LOCALIZED SWELLING, MASS AND LUMP, TRUNK SNOMED Code(s): 408622024332571 (10) Lumbar spondylosis Current Visit: Yes Status: Acute Code(s): M47.816 - SPONDYLOSIS W/O MYE LOPATHY OR RADICULOPATHY, LUMBAR REGION SNOMED Code(s): 699291501 (11) Cellulitis Current Visit: Yes Status: Acute Code(s): L03.90 - CELLULITIS, UNSPECIFIED SNOMED Code(s): 549507637 Plan: Plan: 1. Patient has a developing mass over his right flank/lumbar spine area. He was previously diagnosed with cellulitis in his area. I do not see any evidence of cellulitis at this area. He also has an apparent acute L3 compression fracture deformity. Given his developing mass and compression fracture deformi ty, we will plan to obtain lumbar MRI imaging for further evaluation. Following completion of the lumbar MRI we will review this imaging and follow-up with the patient to discuss further treatment options. Currently, we are planning to continue with conservative treatment for his L3 fracture. At this time we'll plan for bracing. A prescription has been written and provided to case management for an LSO brace. Once this brace is delivered and fitted appropriately, patient should wear this brace while sitting upright at greater than 45, during increase activities. Brace does not have to or while lying in bed or while bathing. 2. We are not currently planning to treat his cervical spine as he is following with another surgeon and is planning to proceed forward with surgical interve ntion at his cervical spine. 3. We are not currently plan to treat his previous T8 fracture requiring surgical intervention as performed in February 2024 with a surgeon in [place], [place]. 4. Patient will continue be seen exam by medicine and Dr. Silver in vascular surgery for treatment evaluation of his other medical diagnoses The case and the imaging has been reviewed. I agree with the assessment above. We will order a brace for him and obtain further imaging of the area to d etermine the potential nature of the mass and to further evaluate the L3 fracture. The patient has chronic paraplegia and has had history of spine surgery in the past. He is also already set up and working with his own spine surgeon outside this hospital. We will try to continue with workup but he will likely continue his follow-up and treatment with his own spine surgeon after hospitalization. Time with Patient: Greater than 30 (Including obtaining history, physical examination, reviewing of imaging, and dictation.)
[2024-10-26] MEDS: CYCLOBENZAPRINE 10 MG TAB PO PRN (20:36)
[2024-10-27 08:38] LABS: Basophils # (A) 0.01 X 10*3/uL (0.00-0.10); Basophils % (A) 0.2 %; Eosinophils # (A) 0.15 X 10*3/uL (0.04-0.35); Eosinophils % (A) 2.7 %; HCT 36.3 % (39.6-50.0); HGB 12.1 g/dL (13.0-17.0); Lymphocytes # (A) 2.29 X 10*3/uL (0.90-5.00); Lymphocytes % (A) 40.9 %; MCH 28.7 pg (27.0-32.0); MCHC 33.3 g/dL (32.0-37.0); Mean Platelet Volume 9.1 FL (9.5-12.2); Monocytes # (A) 0.67 X 10*3/uL (0.20-1.00); NRBC Per 100 WBC 0 X 10*3/uL (0.00-0.01); Neutrophils # (A) 2.46 X 10*3/uL (1.80-7.70); Neutrophils % (A) 43.8 %; Platelet Count 259 X 10*3/uL (140-440); RBC 4.22 X 10*6/uL (4.40-5.60)
[2024-10-27] MEDS: SODIUM CHLORIDE 0.9% 500 ML 500 ML IV ONE (08:53)
[2024-10-27] MEDS: cefTRIAXone 2 GM in DEXTROSE 5% IN WATER 50 ML IVPB SCH (08:54)
[2024-10-27 08:58] LABS: BUN/Creat Ratio 14.12 Ratio (12.00-20.00); Blood Urea Nitrogen 11.3 mg/dL (9.0-27.0); Calcium 9.2 mg/dL (8.7-10.3); Carbon Dioxide 24.8 mmol/L (21.6-31.8); Chloride 105 mmol/L (96-109); Glucose 98 mg/dL (70-110); Potassium 3.6 mmol/L (3.5-5.5); Sodium 138 mmol/L (135-145)
--- NOTE | 2024-10-27 11:12 | P.PN ---
Progress Note - Text Progress Note Date: 10/27/24 Orthopedic spine: History of present illness: Patient is a very pleasant 59-year-old male who is seen examined at the bedside for follow-up evaluation of his lumbar spine. He states he had presented to [facility] with a developing mass in his right lower flank/lumbar spine area. He states he was diagnosed with cellulitis, given medication, and discharged. He states the mass continued to enlarge and he presented to [facility] for further evaluation. Patient does not have any apparent cellulitis at his lumbar spine. He does have a swelling like mass without a palpable fluid collection over his right lower lumbar spine near the flank area. He has undergone multiple imaging modalities during his admission. Thoracic and lumbar spine CT imaging was performed which showed evidence of an acute L3 compression fracture deformity. Patient denies any recent injuries. Since being seen and examined yesterday, lumbar MRI imaging was performed which shows evidence of L3 compression fracture deformity as well as L2 compression fracture deformity. There is no documentation on MRI report in regards to right flank/lumbar soft tissue mass which is not well-visualized. LSO brace was also delivered and fitted appropriately yesterday for his known L3 fracture. Patient states he has significant comfort with the brace and his pain is better controlled. This brace is reapplied at the bedside today. 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 He underwent surgical intervention at in [place], [place] with stabilization of his fracture with retained hardware at T6, T7, T9, and T10. Following that spinal cord injury, he is a paraplegic. He is unable to sense any feeling from the chest down through his lower extremities. He states he has been feeling some pain inside his lumbar spine but does not have any pain or sensation with palpation over his skin. He does not have any pain with palpation over the right lower lumbar/flank mass. Today he states he feels pain deep inside of the area of the right flank/lower lumbar soft tissue mass. He states he no longer follows with her surgeon who performed his surgery last February. He states that his Worker's Compensation. He states he has significant difficulty with his cervical spine as well. He is currently undergoing treatment and evaluation with Dr. Festus Whitlock who is planning to proceed forward with surgical intervention at his cervical spine once approved. They are currently working through the approval process. Following his spinal cord injury, he has had significant difficulty with his mobilization. He has significant bedsores/wounds over his bilateral buttocks that is being treated. It has been improving. He also has a heel wound in his right lower extremity being treated by Dr. Silver. Patient also admits to previous pelvic injury status post fall in 2020 requiring pinning at his pelvis. He is admitted to medicine. CT of the chest, abdomen, and pelvis has also been performed. Physical exam: Patient is awake, alert, and oriented 3 Vital signs stable Good chest excursion with deep inspiration and expiration Abdomen soft nontender Examination of thoracic and lumbar spine reveals skin is intact with no abrasions, lacerations, or bruises; no erythema, purulence or signs of infection Well-healed incisions over the midline of the mid thoracic spine and lower lumbar spine Well-healed incision towards her right iliac crest Evidence of a mass over the right flank/lumbar spine area without evidence of erythema bruising, or palpable fluid collection No obvious infection superficially at this area over his right flank/lumbar spine Patient is unable to sense any palpation over his mid to lower thoracic spine and lumbar spine or bilateral lower extremities Boots intact bilateral lower extremities Right foot pressure ulcer currently dressed LSO brace is applied at the bedside Pertinent studies: MRI of the lumbar spine taken on 10/26/2024: Evidence of subacute compression fracture deformities at the anterior vertebral body of L2 and wedge compression fracture deformity of L3; evidence of lumbar fusion with hardware intact at L4-5 with spondylolisthesis; L2-3 disc bulge and facet spondylosis with mild spinal canal stenosis and mild neural foraminal stenosis; L3-4 facet spondylosis with moderate bilateral neuroforaminal stenosis; L4-5 mild spinal canal stenosis with mild to moderate bilateral neuroforaminal stenosis; L5-S1 facet spondylosis with mild to moderate bilateral foraminal stenosis; no documentation of right flank/lumbar soft tissue mass which is not well-visualized CT of the thoracic and lumbar spine taken on 10/24/2024: Evidence of previous fracture at T8 with evidence of fusion with retained hardware at T6, T7, T9, and T10; evidence of age-indeterminate but expected at least subacute fracture of L3 through the vertebral body; L4-5 evidence of previous fusion with retained hardware and spondylolisthesis; significant lumbar spondylosis Assessment: Paraplegic following previous spinal cord injury at T8 History of thoracic fusion T6-10 following T8 acute traumatic fracture Right flank/lower lumbar spine swelling/soft tissue mass of unknown origin L2 and L 3 compression fracture deformities, at least subacute Low back pain L4-5 history of fusion with retained hardware L4-5 spondylolisthesis Lumbar spondylosis Right foot wound Pressure ulcers of the bilateral buttocksacrum Plan: 1. Patient has a developing mass over his right flank/lumbar spine area. He was previously diagnosed with cellulitis in his area. I do not see any evidence of cellulitis at this area. He also has an apparent acute L3 compression fracture deformity. Given his developing mass and compression fracture deformity, we will plan to obtain lumbar MRI imaging for further evaluation. MRI imaging shows evidence of at least subacute compression fractures of L2 and L3. There is no documentation into the soft tissue mass at the right flank/lumbar spine. Patient has been discussed in significant detail with Dr. Artemio Muñoz. Currently, we will plan to obtain ultrasound of this mass with consultation for Dr. Vazquez in general surgery. We do not have any plans for sarah gical intervention in regards to the soft tissue mass. The soft tissue mass does not correlate well with his lumbar spine. We did discuss his L2 and L3 fractures in significant detail. Because or a cuteness of these fractures are not known. He does not have any recent injuries. He did sustain a significant fall resulting in spinal cord injury on 02/19/2024. It is shows were present at that time but have not healed appropriately. However, they are present on MRI imaging showing at least subacute component. He does admit to some pain on the inside of his spine and his back in this location. We are not planning with surgical intervention as we do not feel there are indications in which surgical intervention would provide any significant improvement of his symptoms. Currently, we are planning to continue with conservative treatment for his L2 and L3 fractures. We will continue with bracing. A prescription has been written and provided to case management for an LSO brace. This brace has been delivered and fitted appropriately, patient should wear this brace while sitting upright at greater than 45, during increase activities. Brace does not have to or while lying in bed or while bathing. From an orthopedic spine standpoint, patient will be cleared for discharge. Patient may follow-up with Avinash Shin PA-C or Dr. Artemio Muñoz at [facility] in 2-3 weeks following discharge. 2. We are not currently planning to treat his cervical spine as he is following with another surgeon and is planning to proceed forward with surgical intervention at his cervical spine. 3. We are not currently plan to treat his previous T8 fracture requiring surgical intervention as performed in February 2024 with a surgeon in [place], [place]. The patient is seen and examined at bedside. I had a long discussion with him and his daughter. I think that the fractures at L2 and L3 stem from the injury that he sustained back in February 2020 for him. He had thoracic injuries as well as lumbar injuries at that time. He also hit his head at that point and had a crack on his hard hat and likely had significant exacerbation of any cervical issues that he may have had. He had acute change at his cervical spine due to the injury as well. He is continuing management for his cervical spine with a spine surgeon at outside facility and should continue with that. In terms of his fractures at L2 and L3, it seems as though these were noted at the time of his initial injury in February. I think that he has delayed union at these fractures due to his neurologic injury and multiple issues. He has multiple areas of skin breakdown and has great difficulty healing due to his neurologic status and prolonged positioning. He says that he feels more comfor table with the LSO brace intact and I think he should continue with this. We did discuss the possibility of intervention for those fractures at L2 and L3. He has had prior surgery at L4-5 in the past which is stable. Surgical intervention at L2 and L3 would likely pose a great deal of possible complications given his lack of wound healing ability and his paraplegia and neurologic status. He has a number of history of infectious processes and I think that surgical intervention at L2-3 for any stabilization would be extremely risky. I discussed this with him at length today. I think he should use the brace for stabilization and it is okay for him to mobilize with the brace intact. He should continue his local delayed healing wound issues. The mass at his right lumbar and flank area is nontender to him. There is not fluctuance. Apparently he had an ultrasound at [facility] and was sent home from that. They did not plan any surgical intervention at that point. It does not seem infectious at this point as his skin is not having any reaction or breakdown. I think we need to obtain the imaging reports from [facility]. At this point I would not plan any surgical intervention of the space and would continue with observation and local wound care. I discussed this with him and his daughter. We will see with the results from [facility] showed.
--- NOTE | 2024-10-27 12:37 | US ---
EXAMINATION TYPE: US mass soft tissue chest/back DATE OF EXAM: 10/27/2024 COMPARISON: NONE CLINICAL INDICATION: Male, 59 years old with history of Right flank/lumbar lateral soft tissue mass; Right lower back lump. TECHNIQUE: FINDINGS: Scanned area of concern no abnormalities seen. IMPRESSION: 1. Ultrasound of the area of concern is unremarkable. No discrete masses identified. Clinical managem ent recommended. [facility], , 10/27/2024 12:34 PM
--- NOTE | 2024-10-27 13:37 | P.DS ---
Providers Date of admission: 10/24/24 21:32 Expected date of discharge: 10/27/24 Attending physician: All Lazo Consults: 10/24/24 21:30 Consult Physician Routine Consulting Provider: Gurvinder Silver Consult Reason/Comments: known Do you want consulting provider notified?: Yes 10/25/24 14:50 Consult Physician Routine Consulting Provider: Kandy Muñoz Consult Reason/Comments: fx in back per CT Do you want consulting provider notified?: Yes 10/26/24 17:00 Consult Physician Routine Consulting Provider: Polo Manriquez Consult Reason/Comments: foot/sacral wound, abx adverse reaction Do you want consulting provider notified?: Yes 10/27/24 11:01 Consult Physician Routine Consulting Provider: Siena Vazquez Consult Reason/Comments: Right flank/lumbar mass Do you want consulting provider notified?: Yes Primary care physician: Maximilian Jeong MD Hospital Course: Discharge diagnoses; #Noncircumscribed fluctuant swelling of lower back #Stage I pressure ulcer of sacrum #History of MRSA infection # Nausea vomiting, due to possible gastroenteritis versus medication adverse effect #Hypovolemia #Chronic right foot wound #Subacute fracture of L3 vertebrae Chronic Medical Conditions #Paraplegic, bipolar, depression, lumbar spine surgery, history of MRSA Hospital course; History of present illness; Patient is a 59-year-old male with paraplegia, history of back surgery, recurrent cellulitis who presents with back pain and enlarging back mass. He states he was seen Thursday10/21/2024 at [facility] with cellulitis in the right flank wrapping around his right lumbar back. Patient reports he was sent home with antibiotics Bactrim and Keflex. Patient reports wound care nurse came to home and recorded cellulitis site has increased in size since Thursday. He also has increasing pain in his back, which is worse with movement. Patient also has chronic right foot ulcer since April. Currently he is denying fever, chills, chest pain, shortness of breath. During stay patient was seen by orthopedic surgery and vascular surgery. None circumscribed fluctuant swelling of lower back does not seem to be infectious, ultrasound done at [facility], and here showed discrete mass which was unremarkable. Lumbar spine MRI completed and discussed with patient and daughter. Pain controlled well with [place]. Nausea and vomiting controlled. Patient is discharged home in stable condition. He is to resume his previously prescribed antibiotic regimen for wounds. He may also wear LSO brace for comfort and support while sitting upright, while working with therapy. He is to follow-up with his PCP wound care, vascular surgery, orthopedic surgery. He would also benefit from following with pain management for his chronic back pain. PHYSICAL EXAMINATION: Vitals reviewed GENERAL: Resting comfortably in bed. EYES: PERRL, no scleral injection or icterus. No vision loss HENT: Normocephalic, atraumatic, hearing grossly intact, moist mucous membranes NECK: No tracheal deviation, full range of motion. CARDIOVASCULAR: S1 and S2 present. No murmurs, rubs, or gallops. PULMONARY: Chest is clear to auscultation, no wheezing, rhonchi, or crackles. ABDOMEN: Soft, nontender, nondistended. No palpable organomegaly. MUSCULOSKELETAL: No apparent joint swelling and deformities. EXTREMITIES: R. lower extemity foot/ankle dressing NEUROLOGICAL: Alert and oriented. Gross neurological examination with no apparent focal deficits. SKIN: aprox. 7 inch fluctuant soft tissue mass, noncircumscribed, on right lower back, non-erythematous, mildly tender, warm and dry. Dictation was produced using [employer] dictation software. please excuse any grammatical, word or spelling errors. Patient Condition at Discharge: Stable Plan - Discharge Summary Discharge Rx Participant: Yes New Discharge Prescriptions: No Action Cyclobenzaprine [Flexeril] 10 mg PO TID PRN PRN Reason: Muscle Spasm traZODone HCL [Desyrel] 50 mg PO HS QUEtiapine FUMARATE 400 mg PO HS oxyCODONE HCL [OxyIR] 5 mg PO Q6H PRN PRN Reason: Pain Sennosides [Senokot] 17.2 mg PO DAILY Meloxicam [Mobic] 15 mg PO DAILY Doxycycline Hyclate 100 mg PO BID DULoxetine HCL [Cymbalta] 30 mg PO HS Cephalexin [Keflex] 500 mg PO QID methocarbamoL [Robaxin-750] 750 mg PO TID PRN PRN Reason: Muscle Spasm Gabapentin [Neurontin] 800 mg PO TID Lactulose 10 gm PO BID PRN PRN Reason: Constipation Diclofenac Sodium [Diclofenac Sodium 1%] 4 gm TOPICAL QID Citalopram Hydrobromide [CeleXA] 20 mg PO DAILY Cholecalciferol [Vitamin D3 (25 Mcg = 1000 Iu)] 50 mcg PO DAILY Sulfamethox-Tmp 800-160Mg [Bactrim DS 800-160 mg] 1 tab PO BID Calcium Carbonate [Calcium] 600 mg PO DAILY Acetaminophen [Tylenol Extra Strength] 1,000 mg PO Q6H PRN PRN Reason: Fever And/ Or Pain Discharge Medication List Cyclobenzaprine [Flexeril] 10 mg PO TID PRN 06/19/23 [History] QUEtiapine FUMARATE 400 mg PO HS 06/19/23 [History] traZODone HCL [Desyrel] 50 mg PO HS 06/19/23 [History] Acetaminophen [Tylenol Extra Strength] 1,000 mg PO Q6H PRN 10/25/24 [History] Calcium Carbonate [Calcium] 600 mg PO DAILY 10/25/24 [History] Cephalexin [Keflex] 500 mg PO QID 10/25/24 [History] Cholecalciferol [Vitamin D3 (25 Mcg = 1000 Iu)] 50 mcg PO DAILY 10/25/24 [History] Citalopram Hydrobromide [CeleXA] 20 mg PO DAILY 10/25/24 [History] DULoxetine HCL [Cymbalta] 30 mg PO HS 10/25/24 [History] Diclofenac Sodium [Diclofenac Sodium 1%] 4 gm TOPICAL QID 10/25/24 [History] Doxycycline Hyclate 100 mg PO BID 10/25/24 [History] Gabapentin [Neurontin] 800 mg PO TID 10/25/24 [History] Lactulose 10 gm PO BID PRN 10/25/24 [History] Meloxicam [Mobic] 15 mg PO DAILY 10/25/24 [History] Sennosides [Senokot] 17.2 mg PO DAILY 10/25/24 [History] Sulfamethox-Tmp 800-160Mg [Bactrim DS 800-160 mg] 1 tab PO BID 10/25/24 [History] methocarbamoL [Robaxin-750] 750 mg PO TID PRN 10/25/24 [History] oxyCODONE HCL [OxyIR] 5 mg PO Q6H PRN 10/25/24 [History] Follow up Appointment(s)/Referral(s): Maximilian Jeong MD [Primary Care Provider] - 1-2 days Avinash Shin PAC [PHYSICIAN [employer]] - 3 Weeks (Patient may follow-up with Avinash Shin PA-C or Dr. Artemio Muñoz at [facility] in 3-4 weeks following discharge. ) [facility] Visiting Nurse, [NON-STAFF] - As Needed Corey Sanchez [NON-STAFF] - As Needed (LSO back brace) Activity/Diet/Wound Care/Special Instructions: 1. Patient may wear LSO brace for comfort and support while sitting upright at greater than 45, while working with therapy, and with transfers. Patient does not have to wear the brace while lying in bed or bathing 2. Patient should avoid excessive bending, twisting, and lifting; no lifting greater than 10 pounds
[2024-10-27 14:51] VITALS: BP 109/54; PULSE 101; RESP 17; TEMP 98.5
--- NOTE | 2024-10-27 19:48 | P.GSCN ---
History of Present Illness Consult date: 10/27/24 History of present illness: Patient is a very pleasant 59-year-old male that states that he has developed a mass on the right side of his back. He presented to outside facility with this developing mass in the right lower flank area and states that he was informed he had cellulitis and was discharged with antibiotics. He believes that the mass has continued to enlarge and presented to this hospital for further evaluation. Denies fevers or any signs of infection. He has had significant imaging workup during this admission with CT of the abdomen and pelvis with no obvious acute finding. Ultrasound of that area also is not showing any acute or solid mass. MRI of lumbar spine was performed with finding of L3 fracture, however no obvious other musculoskeletal diagnoses were presented. He denies any significant pain at the site. Denies any drainage at the site. He does have history of paraplegia and back surgeries. He states that he is being evaluated by neurosurgery for cervical surgery in the near future. Review of Systems All systems: negative Past Medical History Past Medical History: No Reported History Additional Past Medical History / Comment(s): currently has rt aknle fx had a staph infection in rt wrist in past History of Any Multi-Drug Resistant Organisms: MRSA Year Discovered:: 03/08/18 MDRO Source:: Right Knee Past Surgical History: Back Surgery, Orthopedic Surgery Additional Past Surgical History / Comment(s): bilateral elbow, 2 R knee surgeries pelvic surg plate and screws Past Anesthesia/Blood Transfusion Reactions: No Reported Reaction Past Psychological History: Bipolar, Depression Smoking Status: Never smoker Past Alcohol Use History: None Reported Past Drug Use History: Marijuana - Past Family History Father Additional Family Medical History / Comment(s): from staph infection Mother Additional Family Medical History / Comment(s): Alzheimers Medications and Allergies Home Medications Medication Instructions Recorded Confirmed Type Cyclobenzaprine [Flexeril] 10 mg PO TID PRN 06/19/23 10/25/24 History QUEtiapine FUMARATE 400 mg PO HS 06/19/23 10/25/24 History traZODone HCL [Desyrel] 50 mg PO HS 06/19/23 10/25/24 History Acetaminophen [Tylenol Extra 1,000 mg PO Q6H PRN 10/25/24 10/25/24 History Strength] Calcium Carbonate [Calcium] 600 mg PO DAILY 10/25/24 10/25/24 History Cephalexin [Keflex] 500 mg PO QID 10/25/24 10/25/24 History Cholecalciferol [Vitamin D3 (25 50 mcg PO DAILY 10/25/24 10/25/24 History Mcg = 1000 Iu)] Citalopram Hydrobromide [CeleXA] 20 mg PO DAILY 10/25/24 10/25/24 History DULoxetine HCL [Cymbalta] 30 mg PO HS 10/25/24 10/25/24 History Diclofenac Sodium [Diclofenac 4 gm TOPICAL QID 10/25/24 10/25/24 History Sodium 1%] Doxycycline Hyclate 100 mg PO BID 10/25/24 10/25/24 History Gabapentin [Neurontin] 800 mg PO TID 10/25/24 10/25/24 History Lactulose 10 gm PO BID PRN 10/25/24 10/25/24 History Meloxicam [Mobic] 15 mg PO DAILY 10/25/24 10/25/24 History Sennosides [Senokot] 17.2 mg PO DAILY 10/25/24 10/25/24 History Sulfamethox-Tmp 800-160Mg [Bactrim 1 tab PO BID 10/25/24 10/25/24 History DS 800-160 mg] methocarbamoL [Robaxin-750] 750 mg PO TID PRN 10/25/24 10/25/24 History oxyCODONE HCL [OxyIR] 5 mg PO Q6H PRN 10/25/24 10/25/24 History Allergies Allergy/AdvReac Type Severity Reaction Status Date / Time meperidine [From Demerol] Allergy Itching Verified 10/25/24 10:06 Surgical - Exam Osteopathic Statement: *. No significant issues noted on an osteopathic structural exam other than those noted in the History and Physical/Consult. Vital Signs Temp Pulse Resp BP Pulse Ox 98 F 74 18 93/51 99 10/24/24 19:07 10/24/24 19:07 10/24/24 19:07 10/24/24 19:07 10/24/24 19:07 - General no distress - Eyes normal ocular movement - ENT no hearing loss - Neck trachea midline - Respiratory normal respiratory effort - Abdomen Abdomen: soft, non tender - Integumentary Palpable enlargement of the right flank, no discrete mass, however there is significant fullness at that site Results - Labs 10/27/24 06:13 10/27/24 06:13 Abnormal Lab Results - Last 24 Hours (Table) 10/27/24 Range/Units 06:13 RBC 4.22 L (4.40-5.60) X 10*6/uL Hgb 12.1 L (13.0-17.0) g/dL Hct 36.3 L (39.6-50.0) % RDW 18.0 H (11.5-14.5) % MPV 9.1 L (9.5-12.2) FL Microbiology - Last 24 Hours (Table) 10/24/24 20:19 Blood Culture - Preliminary Blood Diabetes panel 10/27/24 Range/Units 06:13 Sodium 138 (135-145) mmol/L Potassium 3.6 (3.5-5.5) mmol/L Chloride 105 (96-109) mmol/L Carbon Dioxide 24.8 (21.6-31.8) mmol/L BUN 11.3 (9.0-27.0) mg/dL Creatinine 0.8 (0.6-1.5) mg/dL Glucose 98 (70-110) mg/dL Calcium 9.2 (8.7-10.3) mg/dL Calcium panel 10/27/24 Range/Units 06:13 Calcium 9.2 (8.7-10.3) mg/dL Pituitary panel 10/27/24 Range/Units 06:13 Sodium 138 (135-145) mmol/L Potassium 3.6 (3.5-5.5) mmol/L Chloride 105 (96-109) mmol/L Carbon Dioxide 24.8 (21.6-31.8) mmol/L BUN 11.3 (9.0-27.0) mg/dL Creatinine 0.8 (0.6-1.5) mg/dL Glucose 98 (70-110) mg/dL Calcium 9.2 (8.7-10.3) mg/dL Adrenal panel 10/27/24 Range/Units 06:13 Sodium 138 (135-145) mmol/L Potassium 3.6 (3.5-5.5) mmol/L Chloride 105 (96-109) mmol/L Carbon Dioxide 24.8 (21.6-31.8) mmol/L BUN 11.3 (9.0-27.0) mg/dL Creatinine 0.8 (0.6-1.5) mg/dL Glucose 98 (70-110) mg/dL Calcium 9.2 (8.7-10.3) mg/dL Assessment and Plan Plan: 59-year-old male with acute growth of right flank mass. On evaluation, there does appear to be fullness in the area, however no discrete palpable masses noted. I did review all imaging with no finding of solid mass. At this point I would not recommend any surgical intervention for this particular issue. He is following with spine surgery and neurosurgery secondary to cervical spine surgery that is required. He states that he is working with his insurance company for approval for the surgery. At this point I did explain to the patient that neurosurgery intervention for the cervical issue would take priority over any issue in this flank especially with no acute findings noted on imaging that was performed. No plan for acute surgical intervention at this time.
== END 2024-10-27 15:51 | disposition home or self-care (01) ==
LOC: EC 19:04 → 4SSUR 21:32
PROVIDERS: ADMIT Hospitalist; ATTEND Hospitalist
DX: L89.151 Pressure ulcer of sacral region, stage 1 (principal); R22.2 Localized swelling, mass and lump, trunk; L97.519 Non-pressure chronic ulcer of other part of right foot with unspecified severity; R11.2 Nausea with vomiting, unspecified; E86.1 Hypovolemia; S32.039A Unspecified fracture of third lumbar vertebra, initial encounter for closed fracture; X58.XXXA Exposure to other specified factors, initial encounter; G82.20 Paraplegia, unspecified; K59.00 Constipation, unspecified; M43.16 Spondylolisthesis, lumbar region; M47.816 Spondylosis without myelopathy or radiculopathy, lumbar region; F32.A Depression, unspecified; Z86.14 Personal history of Methicillin resistant Staphylococcus aureus infection; Z79.1 Long term (current) use of non-steroidal anti-inflammatories (NSAID); Z79.899 Other long term (current) drug therapy; Z98.1 Arthrodesis status
CPT/HCPCS: 96376 ×4; 96361 ×2; 96365 ×2; 96366 ×2; 96367; 96372 ×3; 96375 ×3; 99285; 36415; 93005; 83880; 80053 ×2; 80048 ×2; 83605; 83735 ×2; 84100 ×2; 84484; 85025 ×4; 85610; 85730; 86140; 87040; 87636; 71045; 76604; 72129; 72132; 71260; 74177; 72158; G0378 ×4; J3370 ×3; J2270 ×2; J1200; J0780; J1644 ×3; J2765; J2405 ×3; J0696 ×3; J1885 ×2; J1171; Q9967; A9585